=== PATIENT | female | born 1955 | race Caucasian/White ===

== ENCOUNTER → 2023-01-23 | Outpatient (CLI) | payer MEDICARE, SELFPAY ==
[2023-01-23 21:36] LABS: Absolute Lymphocyte Count 2.71 X10^3/uL (0.83-4.51); Absolute Neutrophil Count 3.2 X10^3/uL (2.0-7.7); Basophil# 0.05 X10^3/uL; Basophil% 0.7 % (0-1); Eosinophil# 0.23 X10^3/uL; Eosinophils% 3.4 % (0-5); Hemoglobin 15.1 g/dL (12.0-15.0); Lymphocyte # 2.71 X10^3/ul (0.83-4.51); Lymphocyte % 39.9 % (19-41); Mean Corp Hgb Conc 32.1 g/dL (32-36); Mean Corpuscular Hgb 29.1 pg (27.0-32.0); Mean Corpuscular Volume 90.6 fL (81-99); Mean Platelet Vol. 11.5 fl (6.2-12.0); Monocyte# 0.63 X10^3/uL; Monocyte% 9.3 % (0-10); NRBC Flagged by Analyzer 0 % (0-5); Neutrophil # 3.17 X10^3/uL (2.7-7.7); Neutrophil % 46.6 % (47-70); Platelet Count 242 K/mm3 (150-450); RBC Distribution Width CV 13.2 % (11.6-14.6); RBC Distribution Width SD 43.4 fl (35.1-43.9); Red Blood Count 5.19 M/mm3 (4.2-5.4); White Blood Count 6.8 K/mm3 (4.4-11.0)
[2023-01-23 21:48] LABS: ALB/GLOB Ratio 0.8 RATIO (0.9-2.4); AST(SGOT) 38 U/L (15-37); Alanine Aminotransfer ALT/SGPT 33 U/L (13-56); Albumin, Serum 3.7 g/dL (3.2-5.0); Alkaline Phosphatase 96 U/L (45-117); Anion Gap 5 (5-15); BUN 10 mg/dL (7-18); BUN/Creat Ratio 14.1 RATIO (10-20); Calcium,Total 9.7 mg/dL (8.5-10.1); Chloride 105 mmol/L (98-107); Cholesterol 262 mg/dL (200); Creatinine, Serum 0.71 mg/dL (0.55-1.02); EST Glomerular Filtration Rate 87 mL/min (>60); Est Glom Filt Rate - Afr Amer 105 mL/min (>60); Globulin 4.8 g/dL (2.2-4.2); Glucose 108 mg/dL (74-106); High Density Lipoprotein 55 mg/dL; Potassium 4.5 mmol/L (3.5-5.1); Protein, Total 8.5 g/dL (6.4-8.2); Sodium Level 139 mmol/L (136-145); Triglycerides 166 mg/dL; Very Low Density Lipoprotein 33 mg/dL (5-40)
== END | disposition home or self-care (01) ==
PROVIDERS: Visit Provider Nurse Practitioner
DX: Z00.00 Encounter for general adult medical examination without abnormal findings (principal); J04.0 Acute laryngitis; E78.5 Hyperlipidemia, unspecified
CPT/HCPCS: 80053; 80061; 84443; 85025

== ENCOUNTER → 2023-10-02 | Outpatient (CLI) | payer MEDICARE, SELFPAY ==
--- NOTE | 2023-10-02 10:28 | RAD_ITS ---
STUDY: X-RAY - LEFT KNEE REASON FOR EXAM: Female, 68 years old. Left knee pain. TECHNIQUE: 2 view(s) of the knee. COMPARISON: None. FINDINGS: Osteopenia. Small superior patellar spur. Moderate medial compartmental arthrosis with osteophytes. Mild arthrosis of the lateral compartment. Mild arthrosis of the patellofemoral compartment. Small suprapatellar joint effusion. RAD/Knee 1 or 2 Views IMPRESSION: Osteopenia, tricompartmental arthrosis most marked medially and small joint effusion. Electronically Signed: Maurizio Shah MD at 10:03 EDT ,
== END | disposition home or self-care (01) ==
LOC: RAD 10:20
PROVIDERS: PCP Nurse Practitioner; Referring Provider Nurse Practitioner; Visit Provider Nurse Practitioner
DX: M25.562 Pain in left knee (principal)
CPT/HCPCS: 73560

== ENCOUNTER → 2024-08-27 | Outpatient (CLI) | payer MEDICARE, SELFPAY ==
[2024-08-27 21:38] LABS: Absolute Lymphocyte Count 2.17 X10^3/uL (0.83-4.51); Absolute Neutrophil Count 3.4 X10^3/uL (2.0-7.7); Basophil# 0.05 X10^3/uL; Basophil% 0.8 % (0-1); Eosinophil# 0.25 X10^3/uL; Eosinophils% 3.8 % (0-5); Hematocrit 42.7 % (37-47); Hemoglobin 14.1 g/dL (12.0-15.0); Lymphocyte # 2.17 X10^3/ul (0.83-4.51); Lymphocyte % 33.1 % (19-41); Mean Corpuscular Hgb 29.5 pg (27.0-32.0); Mean Corpuscular Volume 89.3 fL (81-99); Monocyte# 0.69 X10^3/uL; Monocyte% 10.5 % (0-10); NRBC Flagged by Analyzer 0 % (0-5); Neutrophil # 3.39 X10^3/uL (2.7-7.7); Neutrophil % 51.6 % (47-70); Platelet Count 217 K/mm3 (150-450); RBC Distribution Width CV 13.1 % (11.6-14.6); RBC Distribution Width SD 43.2 fl (35.1-43.9); Red Blood Count 4.78 M/mm3 (4.2-5.4); White Blood Count 6.6 K/mm3 (4.4-11.0)
[2024-08-27 23:17] LABS: Cholesterol 277 mg/dL (<=200); High Density Lipoprotein 65 mg/dL; Low Density Lipoprotein Calc. 176 mg/dL; Triglycerides 182 mg/dL; Very Low Density Lipoprotein 36 mg/dL (5-40); cholesterol:hdl ratio screen 4.25
[2024-08-27 23:43] LABS: ALB/GLOB Ratio 1.2 RATIO (0.9-2.4); AST(SGOT) 44 U/L (<=31); Alanine Aminotransfer ALT/SGPT 30 U/L (<=34); Alkaline Phosphatase 99 U/L (35-104); Anion Gap 10 (5-15); BUN 7 mg/dL (4-19); BUN/Creat Ratio 11.3 RATIO (10-20); Calcium,Total 9.3 mg/dL (7.6-11.0); Carbon Dioxide 26.2 mmol/L (21.0-32.0); Chloride 103 mmol/L (98-108); Creatinine, Serum 0.63 mg/dL (0.70-1.20); EST Glomerular Filtration Rate 95 (>60); Globulin 3.4 g/dL (2.2-4.2); Glucose 140 mg/dL (70-99); Potassium 4.2 mmol/L (3.3-5.1); Protein, Total 7.4 g/dL (5.9-8.4); Sodium Level 139 mmol/L (133-145); Total Bilirubin 0.88 mg/dL (0.00-1.30)
== END | disposition home or self-care (01) ==
PROVIDERS: PCP Nurse Practitioner; Referring Provider Nurse Practitioner; Visit Provider Nurse Practitioner
DX: Z00.00 Encounter for general adult medical examination without abnormal findings (principal); R10.32 Left lower quadrant pain; E78.00 Pure hypercholesterolemia, unspecified; I83.812 Varicose veins of left lower extremity with pain
CPT/HCPCS: 80053; 80061; 85025

== ENCOUNTER → 2024-10-01 | Outpatient (CLI) | payer MEDICARE, SELFPAY ==
--- NOTE | 2024-10-01 07:01 | MRI_ITS ---
PROCEDURE: BRAIN W/WO CONTRAST 10/01/2024 REASON FOR EXAM: HEARING LOSS TECHNIQUE: Brain MRI without and with intravenous contrast with additional dedicated imaging of the IACs. Multiplanar and multisequence images were obtained. CONTRAST: Clariscan 20 mL FINDINGS: Brain: 2 cm curvilinear hyperintensity of the posterior left parietal lobe. Diffusion weighted images: 2 cm curvilinear hyperintensity of the cortex in the posterior left parietal lobe demonstrates restricted diffusion consistent with an acute/subacute infarct. Ventricles: No ventricular dilatation. 4 cm mass of CSF intensity involving the anterior aspect of the left temporal fossa consistent with arachnoid cyst. Major Intracranial Vessels: Normal flow voids. Sinuses: Clear. Mastoids: Small amount of fluid signal is identified within the left mastoid air cells. IACs: No cerebellopontine angle mass to suggest a vestibular schwannoma (acoustic neuroma). Cranial Nerves VII and VIII: Normal. No evidence of mass. No abnormal contrast enhancement. Cochlea, Vestibule and Semicircular Canals: Normal Middle Ear Cavities: Normal MRI/Brain W/WO Contrast IMPRESSION: No vestibular schwannoma (acoustic neuroma). 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 4 cm left temporal arachnoid cyst Reading Location: [id number]
== END | disposition home or self-care (01) ==
PROVIDERS: PCP Nurse Practitioner; Referring Provider Otolaryngology Otolaryngology/Facial Plastic Surgery; Visit Provider Otolaryngology Otolaryngology/Facial Plastic Surgery
DX: H90.3 Sensorineural hearing loss, bilateral (principal)
CPT/HCPCS: 70553; A9575

== ENCOUNTER → 2024-11-20 | Outpatient (CLI) | payer MEDICARE, SELFPAY ==
--- OUTSIDE RECORDS SUMMARY | 2024-11-20 21:46 | XMS RPT_ITS | CCD ---
Author Organization [facility] Care Team Providers Care Scheduling Assistant Name Role Phone Fabián EXPORT FREIGHT CLERK-C, Bolivar Primary Care Provider [phone] Fabián EXPORT FREIGHT CLERK-C, Bolivar Attending Provider [phone] Fabián EXPORT FREIGHT CLERK-C, Bolivar Referring Provider [phone] Johnson SDE.REVIEW MANAGER, Bolivar L Primary Care Provide r Rupert ACEVEDO, Dr. Malik Painter Attending Provider [phone] Dr. Malik Emery MD Referring Provider [phone] Johnson EXPORT FREIGHT CLERK, Bolivar Attending Unavailable Johnson EXPORT FREIGHT CLERK, Bolivar Referring Unavailable Johnson EXPORT FREIGHT CLERK, Bolivar Primary Care Unavailable Malik Emery Attending Unavailable Malik Emery Referring Unavailable Johnson EXPORT FREIGHT CLERK, Bolivar Primary Care Unavailable Ryder Moran Attending Unavailable Johnson EXPORT FREIGHT CLERK, Bolivar Primary Care Unavailable Johnson EXPORT FREIGHT CLERK, Bolivar Primary Care Unavailable Johnson EXPORT FREIGHT CLERK, Bolivar Referring Unavailable Robbie Herr Attending Unavailable JOHNSON, BOLIVAR L Primary Care Unavailable JOHNSON, BOLIVAR L Referring Unavailable JOHNSON, BOLIVAR L Primary Care Unavailable JOHNSON, BOLIVAR L Primary Care Unavailable JOHNSON, BOLIVAR L Referring Unavailable JOHNSON, BOLIVAR L Primary Care Unavailable Allergies Allergy Classification Reported Allergen(s) Allergy Type Date of Onset Reaction(s) Facility (7 sources) Amoxicillin; Translations: [AMOXICILLIN] Drug Allergy 5 Shortness of Breath [facility] (4 sources) Sulfamethoxazole Drug Allergy 2 Anaphylaxis [facility] (1 source) Amoxicillin Drug Allergy 4 [facility] (1 source) Sulfamethoxazole Drug Allergy 4 [facility] Medications Current Medications Medication Drug Class(es) Dates Sig (Normalized) Sig (Original) atorvastatin 20 mg oral tablet (2 sources) HMG-CoA Reductase Inhibitor Start: 08-28-2024 take 1 tablet by mouth once daily Atorvastatin 20 mg tablet Active 20 mg PO daily August 28, 2024 12:00am biotin 1 mg oral capsule (2 sources) Start: 10-31-2023 take 1 capsule by mouth once daily Biotin 1 mg capsule Active 1 mg PO DAILY October 31, 2023 12:00am fluticasone propionate 0.05 mg/actuat metered dose nasal spray (6 sources) Corticosteroid Start: 12-21-2021 take 50 ug nasal route once daily Fluticasone Propionate (Flonase Allergy Relief) 50 mcg/actuation spray,suspension Active 2 NMA INTRANASAL DAILY December 21, 2021 12:00am administer into each nostril Start: 12-21-2021 take 1 spray(s) nasa l route once daily Fluticasone Propionate (Flonase Allergy Relief) 50 mcg/actuation spray,suspension Active 2 SPRAY INTRANASAL DAILY December 21, 2021 12:00am administer into each nostril Start: 05-17-2021 take 2 spray(s) nasa l route once daily fluticasone (FLONASE) 50 mcg/actuation nasal spray Use 2 Sprays in each nostril once daily. 15.8 mL 5 05/17/2021 Active Completed/Discontinued Medications Medication Drug Class(es) Dates Sig (Normalized) Sig (Original) cefuroxime 500 mg oral tablet (2 sources) Cephalosporin Antibacterial Start: 08-18-2024 End: 08-27-2024 take 1 tablet by mouth every twelve hours Cefuroxime Axetil 500 mg tablet Discontinued 500 mg PO Q12H August 18, 2024 12:00am August 27, 2024 3:06pm cephalexin 500 mg oral capsule (20 sources) Cephalosporin Antibacterial Start: 09-14-2021 End: 09-24-2021 take 1 capsule by mouth twice daily Cephalexin 500 mg capsule Discontinued 500 mg PO TWICE A DAY 30 03September 14, 2021 12:00am September 23, 2021 12:00am September 24, 2021 12:05am Start: 09-17-2020 End: 09-27-2020 take 1 capsule by mouth twice daily Cephalexin 500 mg capsule Discontinued 500 mg PO TWICE A DAY September 17, 2020 12:00am September 17, 2020 6:21pm Start: 07-08-2020 End: 07-22-2020 take 1 capsule by mouth twice daily Cephalexin 500 mg capsule Discontinued 500 mg PO TWICE A DAY July 08, 2020 6:55pm July 21, 2020 1:00am July 22, 2020 1:03am Start: 04-18-2018 End: 04-28-2018 take 1 capsule by mouth twice daily Cephalexin 500 mg capsule Discontinued 500 mg PO TWICE A DAY 30 03April 18, 2018 1:00am April 27, 2018 1:00am April 28, 2018 1:14am ciprofloxacin 500 mg oral tablet (8 sources) Quinolone Antimicrobial Start: 12-25-2022 End: 01-23-2023 take 1 tablet by mouth twice daily Ciprofloxacin Hcl (Cipro) 500 mg tablet Discontinued 500 mg PO TWICE A DAY December 25, 2022 12:00am January 23, 2023 3:30pm Start: 08-10-2020 End: 09-17-2020 take 1 tablet by mouth twice daily Ciprofloxacin Hcl (Cipro) 500 mg tablet Discontinued 500 mg PO TWICE A DAY August 10, 2020 1:00am September 17, 2020 6:19pm etodolac 500 mg oral tablet (2 sources) Nonsteroidal Anti-inflammatory Drug Start: 10-31-2023 End: 08-18-2024 take 1 tablet by mouth twice daily Etodolac 500 mg tablet Discontinued 500 mg PO TWICE A DAY October 31, 2023 12:00am August 18, 2024 7:21pm metFORMIN hydrochloride 500 mg oral tablet (4 sources) Biguanide Start: 04-15-2018 End: 04-18-2018 take 1 tablet by mouth once daily Metformin 500 mg tablet Discontinued 500 mg PO DAILY April 15, 2018 1:00am April 18, 2018 7:11pm metroNIDAZOLE 250 mg oral tablet (4 sources) Nitroimidazole Antimicrobial Start: 12-25-2022 End: 01-04-2023 take 1 tablet by mouth three times daily Metronidazole 250 mg tablet Discontinued 250 mg PO THREE TIMES A DAY 09 04December 25, 2022 12:00am January 03, 2023 12:00am January 04, 2023 12:03am sulfamethoxazole 800 mg / trimethoprim 160 mg oral tablet (4 sources) Dihydrofolate Reductase Inhibitor Antibacterial, Sulfonamide Antimicrobial Start: 03-21-2022 End: 03-28-2022 Sulfamethoxazole- Trimethoprim 800-160 mg tablet Discontinued 1 {tbl} PO TWICE A DAY 14 March 21, 2022 12:00am March 27, 2022 12:00am March 28, 2022 12:03am Start: 03-21-2022 End: 03-28-2022 take 1 tablet by mouth twice daily Sulfamethoxazole-Trimethoprim Discontinu ed 1 TABLET PO TWICE A DAY 14 March 21, 2022 12:00am March 28, 2022 12:03am Problems Active Problems Problem Classification Problem Date Documented Date Episodic/Chronic Abdominal pain (4 sources) Left lower quadrant pain; Translations: [Left lower quadrant pain] 12-25-2022 Episodic Disorders of lipid metabolism (2 sources) Hypercholesterolemia; Translations: [Pure hypercholesterolemia, unspecified] 08-27-2024 Chronic Diverticulosis and diverticulitis (4 sources) Diverticulitis; Translations: [Diverticulitis of intestine, part unspecified, without perforation or abscess without bleeding] 12-25-2022 Chronic Hemorrhoids (4 sources) Hemorrhoids; Translations: [Unspecified hemorrhoids] Onset: 07-07-2014 Resolved: 07-29-2014 07-07-2014 Episodic Menstrual disorders (2 sources) Intermenstrual bleeding - irregular; Translations: [Excessive and frequent menstruation with irregular cycle] 07-07-2014 Chronic Nonmalignant breast conditions (2 sources) Calcification of breast; Translations: [Mammographic calcification found on diagnostic imaging of breast] Onset: 10-22-2024 09-12-2024 Episodic Osteoarthritis (5 sources) Osteoarthritis of joint of right hand; Translations: [Primary osteoarthritis, right hand] Onset: 10-31-2023 07-08-2020 Chronic Other ear and sense organ disorders (2 sources) Hearing loss of left ear; Translations: [Unspecified hearing loss, left ear] 08-19-2024 Chronic Other ear and sense organ disorders (1 source) Sensorineural hearing loss, bilateral; Translations: [Sensorineural hearing loss, bilateral] Onset: 10-06-2024 Chronic Other ear and sense organ disorders (2 sources) Tinnitus; Translations: [Tinnitus, unspecified ear] 08-19-2024 Episodic Other injuries and conditions due to external causes (4 sources) Mucoid impaction of bronchi; Translations: [Unspecified foreign body in bronchus causing asphyxiation, initial encounter] 09-17-2020 Episodic Other lower respiratory disease (4 sources) Cough; Translations: [Cough] 04-18-2018 Episodic Other non-traumatic joint disorders (4 sources) Swelling of finger joint; Translations: [Effusion, unspecified hand] 03-22-2022 Episodic Other screening for suspected conditions (not mental disorders or infectious disease) (7 sources) Patient encounter status; Translations: [Encounter for screening mammogram for malignant neoplasm of breast] Onset: 09-11-2024 01-13-2021 Episodic Other upper respiratory disease (4 sources) Nasal discharge; Translations: [Other specified disorders of nose and nasal sinuses] 08-10-2020 Episodic Other upper respiratory infections (4 sources) Maxillary sinusitis; Translations: [Chronic maxillary sinusitis] 09-17-2020 Chronic Other upper respiratory infections (4 sources) Laryngitis; Translations: [Acute laryngitis] 04-18-2018 Episodic Skin and subcutaneous tissue infections (4 sources) Paronychia of finger; Translations: [Cellulitis of right finger] 03-21-2022 Episodic Unclassified (1 source) i might hasve swallowed a straight pin Onset: 2024 Varicose veins of lower extremity (3 sources) Varicose veins of lower extremity; Translations: [Asymptomatic varicose veins of unspecified lower extremity] 10-02-2023 Episodic Past or Other Problems Problem Classification Problem Date Documented Da te Episodic/Chronic Gastrointestinal hemorrhage (6 sources) Gastrointestinal hemorrhage; Translations: [Hemorrhage of anus and rectum] Onset: 5 03-14-2015 Episodic Other non-traumatic joint disorders (4 sources) Pain in left knee; Translations: [Left knee pain] Onset: 4 10-02-2023 Episodic Other non-traumatic joint disorders (1 source) Pain in right knee; Translations: [Pain in right knee] Onset: 4 Episodic Results Test Name Value Interpretation Reference Range Facility DBT Breast - left diagnostic for implanton 10-22-2024 IMPRESSION: Calcifications in the central region of the left breast, middle depth are probably benign. A follow-up in 6 months is recommended. BI-RADS Category 3: Probably Benign RISK: Based on the Tyrer-Cuzick (TC) risk assessment model, this patient has a 2.6% lifetime risk of developing breast cancer, meaning they are at average risk for developing breast cancer. However, this is only an estimate based on available history provided on the patient's questionnaire. We encourage all patients to talk with their providers about these results, further recommendations for managing breast health, and appropriate supplemental screening options if the patient has dense breast tissue. Interpreting Radiologist: Srinivasan Major M.D. Electronically signed on: 10/22/2024 Farm Implement Mechanic: CHAN Transcribe Date/Time: Oct 22 2024 2:29P Dictated by : SRINIVASAN MAJOR MD This examination was interpreted and the report reviewed and electronically signed by: SRINIVASAN MAJOR MD on Oct 22 2024 3:12PM EST [facility] * * *Final Report* * * DATE OF EXAM: Oct 22 2024 2:54PM [facility] 0628 - SANDRA QUEG W YAS LT / PROCEDURE REASON: R92.8 Abnormal mammogram R92.1 Calcification left breast * * * * Physician Interpretation * * * * [place] [address] #[id number] - SANDRA [employer] LT HISTORY: 69 year-old patient seen for diagnostic evaluation of the finding(s) described on prior mammogram in the left breast. Patient states no personal history of breast cancer. COMPARISON STUDIES: The present examination has been compared to prior imaging studies dated 01/19/2021 (mammogram) and 09/11/2024 (mammogram). MAMMOGRAM TECHNIQUE: The study was acquired using full field digital technology and interpreted from soft copy. Digital Breast Tomosynthesis (DBT) images were obtained and used to assist in the interpretation of this examination. MAMMOGRAM FINDINGS: There are scattered areas of fibroglandular density. Additional evaluation was performed for the calcifications in the left breast, central region seen on 09/11/2024. On the present examination, there are loosely grouped punctate calcifications in the central region of the left breast, middle depth. [facility] Provider, [facility] - 10/22/2024 * * *Final Report* * * DATE OF EXAM: Oct 22 2024 2:54PM [facility] 0628 - SANDRA SORENSON LT / PROCEDURE REASON: R92.8 Abnormal mammogram R92.1 Calcification left breast * * * * Physician Interpretation * * * * [place] [address] #[id number] - SANDRA SORENSON LT HISTORY: 69 year-old patient seen for diagnostic evaluation of the finding(s) described on prior mammogram in the left breast. Patient states no personal history of breast cancer. COMPARISON STUDIES: The present examination has been compared to prior imaging studies dated 01/19/2021 (mammogram) and 09/11/2024 (mammogram). MAMMOGRAM TECHNIQUE: The study was acquired using full field digital technology and interpreted from soft copy. Digital Breast Tomosynthesis (DBT) images were obtained and used to assist in the interpretation of this examination. MAMMOGRAM FINDINGS: There are scattered areas of fibroglandular density. Additional evaluation was performed for the calcifications in the left breast, central region seen on 09/11/2024. On the present examination, there are loosely grouped punctate calcifications in the central region of the left breast, middle depth. IMPRESSION IMPRESSION: Calcifications in the central region of the left breast, middle depth are probably benign. A follow-up in 6 months is recommended. BI-RADS Category 3: Probably Benign RISK: Based on the Tyrer-Cuzick (TC) risk assessment model, this patient has a 2.6% lifetime risk of developing breast cancer, meaning they are at average risk for developing breast cancer. However, this is only an estimate based on available history provided on the patient's questionnaire. We encourage all patients to talk with their providers about these results, further recommendations for managing breast health, and appropriate supplemental screening options if the patient has dense breast tissue. Interpreting Radiologist: Srinivasan Major M.D. Electronically signed on: 10/22/2024 Farm Implement Mechanic: CHAN Transcribe Date/Time: Oct 22 2024 2:29P Dictated by : SRINIVASAN MAJOR MD This examination was interpreted and the report reviewed and electronically signed by: SRINIVASAN MAJOR MD on Oct 22 2024 3:12PM EST [facility] Radiology Study observation (narrative) Lola davis [facility] DBT Breast - left diagnostic for implantOrdered By: [facility] Provider on 10-22-2024 [facility] SANDRA DIAG W YAS LTon 025 SANDRA DIAG W YAS LT * * *Final Report* * * DATE OF EXAM: Oct 22 2024 2:54PM [facility] 0628 - SANDRA DIAG W YAS LT / PROCEDURE REASON: R92.8 Abnormal mammogram R92.1 Calcification left breast * * * * Physician Interpretation * * * * [place] [address] #[id number] - SANDRA DIAG W YAS LT HISTORY: 69 year-old patient seen for diagnostic evaluation of the finding(s) described on prior mammogram in the left breast. Patient states no personal history of breast cancer. COMPARISON STUDIES: The present examination has been compared to prior imaging studies dated 01/19/2021 (mammogram) and 09/11/2024 (mammogram). MAMMOGRAM TECHNIQUE: The study was acquired using full field digital technology and interpreted from soft copy. Digital Breast Tomosynthesis (DBT) images were obtained and used to assist in the interpretation of this examination. MAMMOGRAM FINDINGS: There are scattered areas of fibroglandular density. Additional evaluation was performed for the calcifications in the left breast, central region seen on 09/11/2024. On the present examination, there are loosely grouped punctate calcifications in the central region of the left breast, middle depth. IMPRESSION: Calcifications in the central region of the left breast, middle depth are probably benign. A follow-up in 6 months is recommended. BI-RADS Category 3: Probably Benign RISK: Based on the Tyrer-Cuzick (TC) risk assessment model, this patient has a 2.6% lifetime risk of developing breast cancer, meaning they are at average risk for developing breast cancer. However, this is only an estimate based on available history provided on the patient's questionnaire. We encourage all patients to talk with their providers about these results, further recommendations for managing breast health, and appropriate supplemental screening options if the patient has dense breast tissue. Interpreting Radiologist: Srinivasan Major M.D. Electronically signed on: 10/22/2024 Farm Implement Mechanic: CHAN Transcribe Date/Time: Oct 22 2024 2:29P Dictated by : SRINIVASAN MAJOR MD This examination was interpreted and the report reviewed and electronically signed by: SRINIVASAN MAJOR MD on Oct 22 2024 3:12PM EST [id number] Normal [facility] Brain W/WO Contraston 2024 Brain W/WO Contrast [facility] Imaging Services [address] [place] [address] Brain W/WO Contrast MR#: [id number] Acct: [id number] Name: MARY JANE ADAIR Rep #: [id number] : 1955 F 69 From: Donell Gaspar MD PCP: Bolivar Johnson, EXPORT FREIGHT CLERK-C Status: REG CLI Study: Brain W/WO Contrast Date of Exam: 10/01/24 Exam# [id number] Ordering Dr: Malik Emery MD PROCEDURE: BRAIN W/WO CONTRAST 10/01/2024 REASON FOR EXAM: HEARING LOSS TECHNIQUE: Brain MRI without and with intravenous contrast with additional dedicated imaging of the IACs. Multiplanar and multisequence images were obtained. CONTRAST: Clariscan 20 mL FINDINGS: Brain: 2 cm curvilinear hyperintensity of the posterior left parietal lobe. Diffusion weighted images: 2 cm curvilinear hyperintensity of the cortex in the posterior left parietal lobe demonstrates restricted diffusion consistent with an acute/subacute infarct. Ventricles: No ventricular dilatation. 4 cm mass of CSF intensity involving the anterior aspect of the left temporal fossa consistent with arachnoid cyst. Major Intracranial Vessels: Normal flow voids. Sinuses: Clear. Mastoids: Small amount of fluid signal is identified within the left mastoid air cells. IACs: No cerebellopontine angle mass to suggest a vestibular schwannoma (acoustic neuroma). Cranial Nerves VII and VIII: Normal. No evidence of mass. No abnormal contrast enhancement. Cochlea, Vestibule and Semicircular Canals: Normal Middle Ear Cavities: Normal MRI/Brain W/WO Contrast IMPRESSION: No vestibular schwannoma (acoustic neuroma). 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 4 cm left temporal arachnoid cyst Reading Location: [facility] CC: EXPORT FREIGHT CLERKLayton Johnson; Dr. Malik Emery MD Farm Implement Mechanic: Signed Normal [facility] Magnetic resonance imaging r eportOrdered By: Donell Gaspar on 10-01-[address] [facility] Imaging Services [address] [place] [address] Brain W/WO Contrast MR#: [id number] Acct: [id number] Name: MARY JANE ADAIR Rep #: [id number] : 1955 F 69 From: Иван Gaspar MD PCP: TORRI Howard Status: REG CLI Study:Brain W/WO Contrast Date of Exam: 10/01/24 Exam# [id number] Ordering Dr: Yoselyn Emery MD PROCEDURE: BRAIN W/WO CONTRAST 10/01/2024 REASON FOR EXAM: HEARING LOSS TECHNIQUE: Brain MRI without and with intravenous contrast with additional dedicated imaging of the IACs. Multiplanar and multisequence images were obtained. CONTRAST: Clariscan 20 mL FINDINGS: Brain: 2 cm curvilinear hyperintensity of the posterior left parietal lobe. Diffusion weighted images: 2 cm curvilinear hyperintensity of the cortex in the posterior left parietal lobe demonstrates restricted diffusion consistent with an acute/subacute infarct. Ventricles: No ventricular dilatation. 4 cm mass of CSF intensity involving theanterior aspect of the left temporal fossa consistent with arachnoid cyst. Major Intracranial Vessels: Normal flow voids. Sinuses: Clear. Mastoids: Small amount of fluid signal is identified within the left mastoid aircells. IACs: No cerebellopontine angle mass to suggest a vestibular schwannoma (acoustic neuroma). Cranial Nerves VII and VIII: Normal. No evidence of mass. No abnormal contrast enhancement. Cochlea, Vestibule and Semicircular Canals: Normal Middle Ear Cavities: Normal MRI/Brain W/WO Contrast IMPRESSION: No vestibular schwannoma (acoustic neuroma). 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 4 cm left temporal arachnoid cyst Reading Location: [facility] CC: TORRI Johnson; Dr. Malik Emery MD ~ Farm Implement Mechanic: Signed [facility] SCREENING W TOMOon 09-11 SANDRA SCREENING W YAS * * *Final Report* * * DATE OF EXAM: Sep 11 2024 8:57AM [facility] 0582 - SANDRA SCREENING W YAS / PROCEDURE REASON: Z12. 31: Encounter for screening mammogram for malignant neoplasm of breast. * * * * Physician Interpretation * * * * [place] [address] #[id number] - SANDRA SCREENING W YAS HISTORY: 69 year-old patient seen for screening. No current complaints. Patient states no personal history of breast cancer. COMPARISON STUDIES: The present examination has been compared to a prior imaging study dated 01/19/2021 (mammogram). MAMMOGRAM TECHNIQUE: The study was acquired using full field digital technology and interpreted from soft copy. Digital Breast Tomosynthesis (DBT) images were obtained and used to assist in the interpretation of this examination. MAMMOGRAM FINDINGS: There are scattered areas of fibroglandular density. There are calcifications in the central region of the left breast, middle depth. No suspicious masses, calcifications or other abnormalities are seen in the right breast. IMPRESSION: Calcifications in the central region of the left breast, middle depth require additional evaluation. Diagnostic mammogram is recommended. BI-RADS Category 0: Incomplete: Needs Additional Imaging Evaluation RISK: Based on the Tyrer-Cuzick (TC) risk assessment model, this patient has a 3.1% lifetime risk of developing breast cancer, meaning they are at average risk for developing breast cancer. However, this is only an estimate based on available history provided on the patient's questionnaire. We encourage all patients to talk with their providers about these results, further recommendations for managing breast health, and appropriate supplemental screening options if the patient has dense breast tissue. Interpreting Radiologist: Betty Wakefield M.D. Electronically signed on: 09/12/2024 Farm Implement Mechanic: CHAN Transcribe Date/Time: Sep 11 2024 8:26A Dictated by : BETTY AWKEFIELD MD This examination was interpreted and the report reviewed and electronically signed by: BETTY WAKEFIELD MD on Sep 12 2024 10:57AM EST [id number] N Normal [facility] Absolute neutrophil countOrd ered By: Bolivar Johnson on 08-27-2024 Neutrophils (Bld) [#/Vol] 3.4 10*3/uL 2.0-7.7 [facility] Anion gap in Serum or Plasma Ordered By: Bolivar Johnson on 08-27-2024 Anion gap [Moles/Vol] 10 mmol/L - [facility] BUN/creatinine ratioOrdered By: Bolivar Johnson on 08-27-2024 Urea nitrogen/Creatinine [Mass ratio] 11.3 mg/mg 03-30 [facility] Basophil percentageOrdered B y: Bolivar Johnson on 08-27-2024 Basophils/100 WBC (Bld) 0.8 % 0-1 [facility] Bilirubin, totalOrdered By: Bolivar Johnson on 08-27-2024 Bilirubin [Mass/Vol] 0.88 mg/dL 0.00-1.30 [facility] CBC W/Diff, Automatedon 08-09 Absolute Lymph 2.17 X10 3/uL Normal 0.83-4.51 [facility] Comment on above: Performed By: #### L 500.4100, L500.4050, L100.0100 #### [facility] [address] [place], [address] Absolute Neut 3.4 X10 3/uL Normal 2.0-7.7 [facility] Comment on above: Performed By: #### L 500.4100, L500.4050, L100.0100 #### [facility] [address] [place], [address] Basophils/100 WBC (Bld) 0.8 % Normal 0-1 [facility] Comment on above: Performed By: #### L 500.4100, L500.4050, L100.0100 #### [facility] [address] [place], [address] Eosinophils/100 WBC (Bld) 3.8 % Normal 0-5 [facility] Comment on above: Performed By: #### L 500.4100, L500.4050, L100.0100 #### [facility] [address] [place], [address] Erythrocyte distribution width (RBC) [Ratio] 13.1 % Normal 11.6-14.6 [facility] Comment on above: Performed By: #### L 500.4100, L500.4050, L100.0100 #### [facility] [address] [place], [address] Hematocrit (Bld) [Volume fraction] 42.7 % Normal 37-47 [facility] Comment on above: Performed By: #### L 500.4100, L500.4050, L100.0100 #### [facility] [address] [place], [address] Hemoglobin (Bld) [Mass/Vol] 14.1 g/dL Normal 12.0-15.0 [facility] Comment on above: Performed By: #### L 500.4100, L500.4050, L100.0100 #### [facility] [address] [place], [address] IG% 0.200 Normal 0.0-0.9 [facility] Comment on above: Result Comment: IG% - Immature Granulocytes (promyelocytes, myelocytes and metamyelocytes) > 1% indicates that a LEFT SHIFT is Present. Performed By: #### L 500.4100, L500.4050, L100.0100 #### [facility] [address] [place], [address] Lymphocytes/100 WBC (Bld) 33.1 % Normal 19-41 [facility] Comment on above: Performed By: #### L 500.4100, L500.4050, L100.0100 #### [facility] [address] [place], [address] MCH (RBC) [Entitic mass] 29.5 pg Normal 27.0-32.0 [facility] Comment on above: Performed By: #### L 500.4100, L500.4050, L100.0100 #### [facility] [address] [place], [address] MCHC (RBC) [Mass/Vol] 33.0 g/dL Normal 32-36 [facility] Comment on above: Performed By: #### L 500.4100, L500.4050, L100.0100 #### [facility] [address] [place], [address] MCV (RBC) [Entitic vol] 89.3 fL Normal 81-99 [facility] Comment on above: Performed By: #### L 500.4100, L500.4050, L100.0100 #### [facility] [address] [place], [address] Monocytes/100 WBC (Bld) 10.5 % High 0-10 [facility] Comment on above: Performed By: #### L 500.4100, L500.4050, L100.0100 #### [facility] [address] [place], [address] Neutrophils/100 WBC (Bld) 51.6 % Normal 47-70 [facility] Comment on above: Performed By: #### L 500.4100, L500.4050, L100.0100 #### [facility] [address] [place], [address] Nucleated RBC (Bld) [#/Vol] 0 10*3/uL Normal 0-5 [facility] Comment on above: Performed By: #### L 500.4100, L500.4050, L100.0100 #### [facility] [address] [place], [address] Platelet mean volume (Bld) [Entitic vol] 11.0 fL Normal 6.2-12.0 [facility] Comment on above: Performed By: #### L 500.4100, L500.4050, L100.0100 #### [facility] [address] [place], [address] Platelets (Bld) [#/Vol] 217 10*3/uL Normal 150-450 [facility] Comment on above: Performed By: #### L 500.4100, L500.4050, L100.0100 #### [facility] [address] [place], [address] RBC (Bld) [#/Vol] 4.78 10*6/uL Normal 4.2-5.4 [facility] Comment on above: Performed By: #### L 500.4100, L500.4050, L100.0100 #### [facility] [address] [place], [address] RDW SD 43.2 fl Normal 35.1-43.9 [facility] Comment on above: Performed By: #### L 500.4100, L500.4050, L100.0100 #### [facility] [address] [place], [address] WBC (Bld) [#/Vol] 6.6 10*3/uL Normal 4.4-11.0 [facility] Comment on above: Performed By: #### L 500.4100, L500.4050, L100.0100 #### [facility] [address] [place], [address] Calculated very low density lipoprotein (VLDL) cholesterol measurementOrdered By: Bolivar Johnson on 08-27-2024 VLDL Cholesterol 36 mg/dL 5-40 [facility] Carbon dioxide, total [Moles /volume] in Central venous bloodOrdered By: Bolivar Johnson on 08-27-2024 CO2 [Moles/Vol] 26.2 mmol/L 21.0-32.0 [facility] Chloride assayOrdered By: Do ra Johnson on 08-27-2024 Chloride [Moles/Vol] 103 mmol/L 98-108 [facility] Comprehensive Metabolic Prof ilon 08-27-2024 Albumin [Mass/Vol] 4.0 g/dL Normal 3.4-4.8 [facility] Comment on above: Performed By: #### L 500.4100, L500.4050, L100.0100 #### [facility] [address] [place], [address] Albumin/Globulin [Mass ratio] 1.2 {ratio} Normal 0.9-2.4 [facility] Comment on above: Performed By: #### L 500.4100, L500.4050, L100.0100 #### [facility] [address] [place], [address] ALK PHOS 99 U/L Normal 35-104 [facility] Comment on above: Performed By: #### L 500.4100, L500.4050, L100.0100 #### [facility] [address] [place], [address] ALT [Catalytic activity/Vol] 30 U/L Normal <=34 [facility] Comment on above: Performed By: #### L 500.4100, L500.4050, L100.0100 #### [facility] [address] [place], [address] AST [Catalytic activity/Vol] 44 U/L High <=31 [facility] Comment on above: Performed By: #### L 500.4100, L500.4050, L100.0100 #### [facility] [address] [place], [address] Bilirubin [Mass/Vol] 0.88 mg/dL Normal 0.00-1.30 [facility] Comment on above: Performed By: #### L 500.4100, L500.4050, L100.0100 #### [facility] [address] [place], [address] BUN/CRE 11.3 RATIO Normal 10-20 [facility] Comment on above: Performed By: #### L 500.4100, L500.4050, L100.0100 #### [facility] [address] [place], [address] Calcium [Mass/Vol] 9.3 mg/dL Normal 7.6-11.0 [facility] Comment on above: Performed By: #### L 500.4100, L500.4050, L100.0100 #### [facility] [address] [place], [address] Chloride [Moles/Vol] 103 mmol/L Normal 98-108 [facility] Comment on above: Performed By: #### L 500.4100, L500.4050, L100.0100 #### [facility] [address] [place], [address] CO2 [Moles/Vol] 26.2 mmol/L Normal 21.0-32.0 [facility] Comment on above: Performed By: #### L 500.4100, L500.4050, L100.0100 #### [facility] [address] [place], [address] Creatinine [Mass/Vol] 0.63 mg/dL Low 0.70-1.20 [facility] Comment on above: Performed By: #### L 500.4100, L500.4050, L100.0100 #### [facility] [address] [place], [address] GAP 10 Normal 5-15 [facility] Comment on above: Performed By: #### L 500.4100, L500.4050, L100.0100 #### [facility] [address] [place], [address] GFR/1.73 sq M.predicted among non-blacks MDRD (S/P/Bld) [Vol rate/Area] 95 mL/min/{1.73_m2} Normal >60 [facility] Comment on above: Result Comment: mL/m in/1.73m2 CKD-EPI Creatinine Equation (2020) Performed By: #### L 500.4100, L500.4050, L100.0100 #### [facility] [address] [place], [address] Globulin (S) [Mass/Vol] 3.4 g/dL Normal 2.2-4.2 [facility] Comment on above: Performed By: #### L 500.4100, L500.4050, L100.0100 #### [facility] [address] [place], [address] Glucose [Mass/Vol] 140 mg/dL High 70-99 [facility] Comment on above: Performed By: #### L 500.4100, L500.4050, L100.0100 #### [facility] [address] [place], [address] Potassium [Moles/Vol] 4.2 mmol/L Normal 3.3-5.1 [facility] Comment on above: Performed By: #### L 500.4100, L500.4050, L100.0100 #### [facility] [address] [place], [address] Sodium [Moles/Vol] 139 mmol/L Normal 133-145 [facility] Comment on above: Performed By: #### L 500.4100, L500.4050, L100.0100 #### [facility] [address] [place], [address] T PROT 7.4 g/dL Normal 5.9-8.4 [facility] Comment on above: Performed By: #### L 500.4100, L500.4050, L100.0100 #### [facility] [address] [place], [address] Urea nitrogen [Mass/Vol] 7 mg/dL Normal 4-19 [facility] Comment on above: Performed By: #### L 500.4100, L500.4050, L100.0100 #### [facility] [address] [place], [address] Eosinophil percentageOrdered By: Bolivar Johnson on 08-27-2024 Eosinophils/100 WBC (Bld) 3.8 % 0-5 [facility] Erythrocyte distribution wid th ratioOrdered By: Bolivar Johnson on 08-27-2024 Erythrocyte distribution width (RBC) [Ratio] 13.1 % 11.6-14.6 [facility] Erythrocyte distribution wid th standard deviationOrdered By: Bolivar Johnson on 08-27-2024 Erythrocyte distribution width (RBC) [Entitic vol] 43.2 fL 35.1-43.9 [facility] GFR/1.73 sq M.predicted hallie g non-blacks MDRD (S/P/Bld) [Vol rate/Area]Ordered By: Bolivar Johnson on 08-27-2024 Estimated GFR (MDRD) Non-Af Amer 95 >60 [facility] Comment on above: mL/min/1.73m2 CKD-EP I Creatinine Equation (2020) Hematocrit Auto (Bld) [Volum e fraction]Ordered By: Bolivar Johnson on 08-27-2024 Hematocrit (Bld) [Volume fraction] 42.7 % 37-47 [facility] Hemoglobin measurementOrdere d By: Bolivar Johnson on 08-27-2024 Hemoglobin (Bld) [Mass/Vol] 14.1 g/dL 12.0-15.0 [facility] Immature granulocytes/100 WB C Auto (Bld)Ordered By: Bolivar Johnson on 08-27-2024 Immature granulocytes/100 WBC (Bld) 0.200 % 0.0-0.9 [facility] Comment on above: IG% - Immature Granu locytes (promyelocytes, myelocytes and metamyelocytes) > 1% indicates that a LEFT SHIFT is Present. LDL calc ser/plasOrdered By: Bolivar Johnson on 08-27-2024 LDL Cholesterol, Calculated 176 mg/dL [facility] Comment on above: Eryuqmvgri=712-541 m g/dL & Higher Qvwx=074 mg/dL or greater Laboratory - Chemistry and C hemistry - challengeOrdered By: Bolivar Johnson on 08-27-2024 AST [Catalytic activity/Vol] 44 U/L High <32 [facility] Lipid Profileon 08-27-2024 CHOL:HDL 4.25 Normal [facility] Comment on above: Performed By: #### L 500.4100, L500.4050, L100.0100 #### [facility] [address] [place], [address] Cholesterol [Mass/Vol] 277 mg/dL High <=200 [facility] Comment on above: Result Comment: Chol esterol level, Desirable <200 mg/dL Borderline high cholesterol 200-239 mg/dL High cholesterol >=240 mg/dL Recommendations of the NCEP Adult Treatment Panel for the following risk-cutoff thresholds for the [place] population. Performed By: #### L 500.4100, L500.4050, L100.0100 #### [facility] [address] [place], [address] Cholesterol in HDL [Mass/Vol] 65 mg/dL Normal [facility] Comment on above: Result Comment: Alia onal Cholesterol Education Program (NCEP) guidelines: <40 mg/dL: Low HDL-cholesterol (major risk factor for CHD) >= 60 mg/dL: High HDL-cholesterol (negative risk factor for CHD) HDL-cholesterol is affected by a number of factors, e.g. smoking, exercise, hormones, sex and age. Performed By: #### L 500.4100, L500.4050, L100.0100 #### [facility] [address] [place], [address] Cholesterol in LDL [Mass/Vol] 176 mg/dL Normal [facility] Comment on above: Result Comment: Bord wurtfj=343-742 mg/dL Higher Zjtf=108 mg/dL or greater Performed By: #### L 500.4100, L500.4050, L100.0100 #### [facility] [address] [place], [address] Cholesterol in VLDL [Mass/Vol] 36 mg/dL Normal 5-40 [facility] Comment on above: Performed By: #### L 500.4100, L500.4050, L100.0100 #### [facility] [address] [place], [address] Triglyceride [Mass/Vol] 182 mg/dL Normal [facility] Comment on above: Result Comment: The drugs N-Acetylcysteine and Metamizole may falsely depress this assay. Normal range: <150 mg/dL Borderline High: 150-199 mg/dL High: 200-499 mg/dL Very High: >500 mg/dL Performed By: #### L 500.4100, L500.4050, L100.0100 #### [facility] [address] [place], [address] Lymphocytes Auto (Unsp spec) [#/Vol]Ordered By: Bolivar Johnson on 08-27-2024 Lymphocytes (Bld) [#/Vol] 2.17 10*3/uL 0.83-4.51 [facility] Lymphocytes/100 WBC Auto (Un sp spec)Ordered By: Bolivar Johnson on 08-27-2024 Lymphocytes/100 WBC (Bld) 33.1 % 19-41 [facility] MCV (mean corpuscular volume ) determinationOrdered By: Bolivar Johnson on 08-27-2024 MCV (RBC) [Entitic vol] 89.3 fL 81-99 [facility] Mean corpuscular hemoglobin (MCH) determinationOrdered By: Bolivar Johnson on 08-27-2024 MCH (RBC) [Entitic mass] 29.5 pg 27.0-32.0 [facility] Mean corpuscular hemoglobin concentration (MCHC) determinationOrdered By: Bolivar Johnson on 08-27-2024 MCHC (RBC) [Mass/Vol] 33.0 g/dL 32-36 [facility] Mean platelet volume determi nationOrdered By: Bolivar Johnson on 08-27-2024 Platelet mean volume (Bld) [Entitic vol] 11.0 fL 6.2-12.0 [facility] Monocyte percentageOrdered B y: Bolivar Johnson on 08-27-2024 Monocytes/100 WBC (Bld) 10.5 % High 0-10 [facility] Neutrophil percentageOrdered By: Bolivar Johnson on 08-27-2024 Neutrophils/100 WBC (Bld) 51.6 % 47-70 [facility] Nucleated red blood cell per centageOrdered By: Bolivar Johnson on 08-27-2024 Nucleated RBC/100 WBC (Bld) [Ratio] 0 % 0-5 [facility] Platelet countOrdered By: Do ra Johnson on 08-27-2024 Platelets (Bld) [#/Vol] 217 10*3/uL 150-450 [facility] Potassium (Unsp spec) [Mass/ Vol]Ordered By: Bolivar Johnson on 08-27-2024 Potassium [Moles/Vol] 4.2 mmol/L 3.3-5.1 [facility] RBC Auto (Bld) [#/Vol]Ordere d By: Bolivar Johnson on 08-27-2024 RBC (Bld) [#/Vol] 4.78 10*6/uL 4.2-5.4 [facility] Screening total cholesterol/ high density lipoprotein (HDL) cholesterol ratioOrdered By: Bolivar Johnson on 08-27-2024 Cholesterol.total/Choles terol in HDL [Mass ratio] 4.25 {ratio} [facility] Serum creatinine measurement (mass/volume)Ordered By: Bolivar Johnson on 08-27-2024 Creatinine [Mass/Vol] 0.63 mg/dL Low 0.70-1.20 [facility] Serum globulin measurementOr dered By: Bolivar Johnson on 08-27-2024 Globulin (S) [Mass/Vol] 3.4 g/dL 2.2-4.2 [facility] Serum glucose measurement (m ass/volume)Ordered By: Bolivar Johnson on 08-27-2024 Glucose [Mass/Vol] 140 mg/dL High 70-99 [facility] Serum or plasma alanine sharif otransferase (ALT) measurementOrdered By: Bolivar Johnson on 08-27-2024 ALT [Catalytic activity/Vol] 30 U/L <35 [facility] Serum or plasma albumin chris urement (mass/volume)Ordered By: Bolivar Johnson on 08-27-2024 Albumin [Mass/Vol] 4.0 g/dL 3.4-4.8 [facility] Serum or plasma albumin/glob ulin mass ratioOrdered By: Bolivar Johnson on 08-27-2024 Albumin/Globulin [Mass ratio] 1.2 {ratio} 0.9-2.4 [facility] Serum or plasma alkaline asif sphatase measurementOrdered By: Bolivar Johnson on 08-27-2024 ALP [Catalytic activity/Vol] 99 U/L 35-104 [facility] Serum or plasma calcium chris urement (mass/volume)Ordered By: Bolivar Johnson on 08-27-2024 Calcium [Mass/Vol] 9.3 mg/dL 7.6-11.0 [facility] Serum or plasma cholesterol in HDL measurement (mass/volume)Ordered By: Bolivar Johnson on 08-27-2024 Cholesterol in HDL [Mass/Vol] 65 mg/dL >40 [facility] Comment on above: National Cholesterol Education Program (NCEP) guidelines:<40 mg/dL: Low HDL-cholesterol (major risk factor for CHD)>= 60 mg/dL: High HDL-cholesterol (negative risk factor for CHD)HDL-cholesterol is affected by a number of factors, e.g. smoking, exercise, hormones, sex and age. Serum or plasma cholesterol measurement (mass/volume)Ordered By: Bolivar Johnson on 08-27-2024 Cholesterol [Mass/Vol] 277 mg/dL High <201 [facility] Comment on above: Cholesterol level, D esirable <200 mg/dLBorderline high cholesterol 200-239 mg/dLHigh cholesterol >=240 mg/dLRecommendations of the NCEP Adult Treatment Panel for the following risk-cutoff thresholds for the [place] population. Serum or plasma urea nitroge n measurement (mass/volume)Ordered By: Bolivar Johnson on 08-27-2024 Urea nitrogen [Mass/Vol] 7 mg/dL 4-19 [facility] Sodium levelOrdered By: Bolivar Johnson on 08-27-2024 Sodium [Moles/Vol] 139 mmol/L 133-145 [facility] Total proteinOrdered By: Tino Johnson on 08-27-2024 Protein [Mass/Vol] 7.4 g/dL 5.9-8.4 [facility] Triglycerides measurementOrd ered By: Bolivar Johnson on 08-27-2024 Triglyceride [Mass/Vol] 182 mg/dL <199 [facility] Comment on above: The drugs N-Acetylcy steine and Metamizole may falsely depress this assay. Normal range: <150 mg/dLBorderline High: 150-199 mg/dLHigh: 200-499 mg/dLVery High: >500 mg/dL White blood cell (WBC) count Ordered By: Bolivar Johnson on 08-27-2024 WBC (Bld) [#/Vol] 6.6 10*3/uL 4.4-11.0 [facility] ED NOTEon 2024 ED NOTE HNO ID: [id number] Author: NIKHIL SAMPSON RN Service: ? Author Type: Registered Nurse Type: ED Notes Filed: 2024 17:23 Note Text: Pt given discharge instructions, pt questions answered and pt denies any further questions at time of discharge. Pt ambulates out of dept with a steady gait. Normal [facility] ED NOTE HNO ID: [id number] Author: NIKHIL SAMPSON, TONY Service: ? Author Type: Registered Nurse Type: ED Notes Filed: 2024 15:53 Note Text: Dr rosenbaum at bedside for exam Normal [facility] ED NOTE HNO ID: [id number] Author: NIKHIL SAMPSON, TONY Service: ? Author Type: Registered Nurse Type: ED Notes Filed: 2024 15:52 Note Text: Pt is unsure if she may have swallowed a straight pin. Pt denies pain, but thinks that she has some discomfort in her throat. Pt thinks it may be a thread instead. Pt has ate and drank since the possible ingestion. Normal [facility] ED PROV NOTEon 2024 ED PROV NOTE HNO ID: [id number] Author: HALEY ROSENBAUM MD Service: Emergency Medicine Author Type: Physician Type: ED Provider Notes Filed: 2024 17:17 Note Text: ED Provider Note Patient Name: Mary Jane Adair : 1955 SERVICE DATE: 02/08/24 History Patient presents with: Foreign Body Ingestion Patient is a 68-year-old female presenting for concern for swallowing a straight pin. Patient states that she initially was holding a straight pin in her mouth. She states that she may have swallowed it because she is having some throat irritation. Although she is not sure if it may be on the threat at home as well. She has eaten and drink without any difficulty since the possible ingestion. She is here to make sure that she does not have it in her throat or esophagus. PAST MEDICAL HISTORY No date: Hemorrhoids No date: Irregular intermenstrual bleeding PAST SURGICAL HISTORY No date: ELBOW No date: HYSTERECTOMY HX No date: PAST SURGICAL HISTORY OF Comment: endometerial ablation No date: PAST SURGICAL HISTORY OF Comment: dANDc No date: PAST SURGICAL HISTORY OF Comment: hysteroscopy 2011: PAST SURGICAL HISTORY OF; Bilateral Comment: benjamin carpal tunnel No date: REMOVAL GALLBLADDER No date: THUMB R No date: TONSILLECTOMY HX FAMILY HISTORY Problem Relation Age of Onset None Mother Emphysema Father Heart Paternal Uncle Social History Tobacco Use Smoking status: Former Types: Cigarettes Start date: 07/07/1982 Smokeless tobacco: Never Vaping Use Vaping status: Never Used Substance and Sexual Activity Alcohol use: No Drug use: Never Sexual activity: Not on file ALLERGIES Allergen Reactions Amoxicillin Shortness of Breath Review of Systems Constitutional: Negative for activity change, appetite change, chills, fatigue and fever. HENT: Negative for congestion, ear pain, rhinorrhea and sore throat. Respiratory: Negative for cough and shortness of breath. Cardiovascular: Negative for chest pain and palpitations. Gastrointestinal: Negative for abdominal pain, diarrhea, nausea and vomiting. Genitourinary: Negative for dysuria, frequency and urgency. Musculoskeletal: Negative for arthralgias and myalgias. Skin: Negative for rash and wound. Neurological: Negative for dizziness and headaches. Psychiatric/Behaviora l: Negative for self-injury and suicidal ideas. All other systems reviewed and are negative. Physical Exam Vitals [02/08/24 1548] BP Pulse Temp Temp src Resp SpO2 Weight Height 144/107 77 36.2 ?C (97.2 ?F) Temporal Art 18 95 % 93 kg (205 lb) 1.575 m (5' 2) Physical Exam Vitals and nursing note reviewed. Constitutional: General: She is not in acute distress. Appearance: She is well-developed. HENT: Head: Normocephalic and atraumatic. Nose: Nose normal. Mouth/Throat: Mouth: Mucous membranes are moist. Pharynx: Oropharynx is clear. Eyes: Extraocular Movements: Extraocular movements intact. Pupils: Pupils are equal, round, and reactive to light. Cardiovascular: Rate and Rhythm: Normal rate and regular rhythm. Heart sounds: Normal heart sounds. No murmur heard. No friction rub. No gallop. Pulmonary: Effort: Pulmonary effort is normal. No respiratory distress. Breath sounds: Normal breath sounds. No stridor. No wheezing, rhonchi or rales. Abdominal: General: Bowel sounds are normal. There is no distension. Palpations: Abdomen is soft. Tenderness: There is no abdominal tenderness. Musculoskeletal: General: Normal range of motion. Cervical back: Normal range of motion and neck supple. Right lower leg: No edema. Left lower leg: No edema. Skin: General: Skin is warm and dry. Neurological: General: No focal deficit present. Mental Status: She is alert and oriented to person, place, and time. GCS: GCS eye subscore is 4. GCS verbal subscore is 5. GCS motor subscore is 6. Psychiatric: Mood and Affect: Mood normal. Behavior: Behavior normal. Diagnostic Testing ED Labs Ordered and Reviewed - No data to display Procedures ED Course / Clinical Impression Clinical Impressions as of 02/08/24 1715 Normal exam MDM / Disposition / Plan The patient was seen and examined. History and physical were obtained. Based on history and physical, above diagnostic studies were obtained. Patient presents with concern for foreign body. Considering it is a straight pin it is metal and should be seen on x-ray. X-rays of the chest abdomen and pelvis were performed. X-rays shows no metallic or radio opaque foreign bodies. Patient made aware of results. At this point in time I believe she is able to go home. She can follow-up with her primary care physician and return to ED for any new or worsening concerns. Disposition The patient was discharged. Counseled patient regarding suspected diagnosis and radiology results. SIGNATURE: Haley Rosenbaum MD - NOEMI HALEY M 02/08/24 1717 Normal [facility] XR ABD 2V SUPINE W UPR/DECUB /CTLon 2024 XR ABD 2V SUPINE W UPR/DECUB/CTL * * *Final Report* * * DATE OF EXAM: 2024 4:31PM LDX [id number] - XR ABD 2V SUPINE W UPR/DECUB/CTL / PROCEDURE REASON: Ingested foreign body * * * * Physician Interpretation * * * * EXAM: XR ABD 2V SUPINE W UPR/DECUB/CTL HISTORY: Ingested foreign body COMPARISON: None available FINDINGS: Cholecystectomy clips project over the right upper quadrant. No dilated loop of bowel. No definite radiopaque foreign body. IMPRESSION: No definite radiopaque foreign body identified. Farm Implement Mechanic: Intacct Transcribe Date/Time: 2024 4:51P Dictated by : JR HERNANDEZ MD This examination was interpreted and the report reviewed and electronically signed by: JR HERNANDEZ MD on 2024 4:52PM EST [id number] Normal [facility] XR CHEST 2V FRONTAL/LATon XR CHEST 2V FRONTAL/LAT * * *Final Repor t* * * DATE OF EXAM: 2024 4:32PM LDX 5291 - XR CHEST 2V FRONTAL/LAT / PROCEDURE REASON: Foreign Body * * * * Physician Interpretation * * * * EXAMINATION: CHEST RADIOGRAPH (2 VIEW FRONTAL and LATERAL) CLINICAL HISTORY: Foreign Body MQ: XC2_6 EXAM DATE/TIME: 2024 4:32 PM COMPARISON: May 29, 2009. RESULT: Lines, tubes, and devices: None. Lungs and pleura: No consolidation. No pleural effusion. No pneumothorax. Cardiomediastinal silhouette: Normal cardiomediastinal silhouette. Bones and soft tissues: Unremarkable. IMPRESSION: No acute radiographic abnormality. Farm Implement Mechanic: Intacct Transcribe Date/Time: 2024 4:49P Dictated by : JR HERNANDEZ MD This examination was interpreted and the report reviewed and electronically signed by: JR HERNANDEZ MD on 2024 4:50PM EST [id number] Normal [facility] Knee 1 or 2 Viewson 10-31-19 Knee 1 or 2 Views [facility] [address] [place] [address] Knee 1 or 2 Views MR#: [id number] Acct: [id number] Name: MARY JANE ADAIR Rep #: [id number] : 1955 F 68 From: Kirby Cyr MD PCP: TORRI Howard Status: DEP AMB Study: Knee 1 or 2 Views Date of Exam: 10/31/23 Exam# [id number] Ordering Dr: Robbie Herr DO [id number] STUDY: X-RAY - LEFT KNEE REASON FOR EXAM: Female, 68 years old. Pain -- sunrise and notch only. TECHNIQUE: 2 views of the left knee. COMPARISON: None. FINDINGS: Normal visualized distal femur. Normal visualized proximal tibia and fibula. Normal proximal tibiofibular articulation. There is no demonstrated fracture. There is severe degenerative arthrosis of the medial femorotibial compartment with severe joint space narrowing. There is mild degenerative arthrosis of the lateral femorotibial compartment. There is mild degenerative arthrosis of the patellofemoral articulation. The soft tissue structures are unremarkable. RAD/Knee 1 or 2 Views IMPRESSION: Tricompartment degenerative arthrosis, most severe in the medial femorotibial compartment. No demonstrated fracture. Electronically Signed: Kirby Cyr MD at 10:30 EDT , CC: TORRI Johnson; Dr. Robbie Herr DO Farm Implement Mechanic: Signed Normal [facility] Knee 4 or More Viewson 10-30 Knee 4 or More Views [facility] [address] [place] [address] Knee 4 or More Views MR#: [id number] Acct: [id number] Name: MARY JANE ADAIR Rep #: [id number] : 1955 F 68 From: Kirby Cyr MD PCP: TORRI Howard Status: DEP AMB Study: Knee 4 or More Views Date of Exam: 10/31/23 Exam# [id number] Ordering Dr: Robbie Herr DO [id number] STUDY: X-RAY - RIGHT KNEE REASON FOR EXAM: Female, 68 years old. Pain. TECHNIQUE: 4 views of the right knee. COMPARISON: None. FINDINGS: Normal visualized distal femur. Normal visualized proximal tibia and fibula. Normal proximal tibiofibular articulation. There is no demonstrated fracture. There is mild degenerative arthrosis of the medial femorotibial compartment. There is mild degenerative arthrosis of the lateral femorotibial compartment. There is mild degenerative arthrosis of the patellofemoral articulation. There is a 1.6 cm calcified structure overlying the suprapatellar bursa, probably representing a calcified loose body. The soft tissue structures are unremarkable. RAD/Knee 4 or More Views IMPRESSION: Mild tricompartment degenerative arthrosis. Suspected 1.6 mL calcified loose body in the suprapatellar bursa. No demonstrated fracture. Electronically Signed: Kirby Cyr MD at 10:29 EDT , CC: TORRI Johnson; Dr. Robbie Herr DO Farm Implement Mechanic: Signed Normal [facility] Orthopedic Visit Reporton Orthopedic Visit Report [facility] [address] [place] [address] OFFICE VISIT Date of Service: 10/31/23 MR#: [id number] Acct: [id number] Name: MARY JANE ADAIR Rep #: [id number] : 1955 Provider: Dr. Robbie morel, DO Age/Sex: 68/F [place] [facility] [place] Status: Signed Intake Vital Signs 10/02/23 12:00 10/31/23 09:59 Height 5 ft 1 in 5 ft 1 in Weight: 215 lb 2 oz BMI 40.6 Intake Visit Reasons: BI LAT KNEES Accompanied by: Self Is patient in pain?: Yes Pain scale (1-10): 5 Allergies sulfamethoxazole Allergy (Severe, Verified 10/31/23 10:01) Anaphylaxis amoxicillin Allergy (Intermediate, Unverified 10/31/23 10:01) hives and swelling Medications ???Medication ???Instructions ???Recorded ???Confirmed ???Type fluticasone propionate 50 2 spray intranasal DAILY #16 grams 12/21/21 10/31/23 Rx mcg/actuation nasal spray,suspension (Flonase Allergy Relief) biotin 1 mg capsule 1 mg PO DAILY 10/31/23 10/31/23 History etodolac 500 mg tablet 500 mg PO BID #40 tabs 10/31/23 10/31/23 Rx PFSH Medical History (Updated 10/02/23 @ 12:07 by Bolivar Johnson NP, EXPORT FREIGHT CLERK-C) Carpal tunnel syndrome revision of right thumb from a bite Ganglion cyst of wrist Carpal tunnel syndrome, bilateral Rosacea Hemorrhoids Chronic ear infection Surgical History H/O carpal tunnel repair History of cholecystectomy FH: ADRIANA-BSO (total abdominal hysterectomy and bilateral salpingo-oophorectomy ) Family History Other Diabetes Heart disease High cholesterol Thyroid disorder Social History Smoking Status: Never smoker HPI BI LAT KNEES Details: This documentation accurately reflects the service provided and the decisions made by me, Dr. Robbie Herr, DO 10/31/23 0757. Part of today???s visit was documented by Erica Lezama, acting as scribe. MARY JANE ADAIR is a 68 year old F here today for her bilateral knees. Patient notes that she has had knee pain for about 6 months with her pain worsening the last month. She states that she has had multiple falls recently, landing directly on her knee. Patient denies any prior knee surgery. Patient complains of pain over her left knee only posterior . She denies any right knee pain currently although she has creeking since her most recent fall. She has a sharp pain into her left knee and she needs to twist her knee, and then she can ambulate normal. She denies any instability although her knee twists and she doesnt stop to untwist, and then she falls. Her activities arent stopped due to her knee pain. Patient denies any injections, physical therapy. She has a knee sleeve which isnt comfortable or fit her well. She has increased pain with ambulating stairs. Patient denies any pain medications. She takes ibuprofen 1 tablet once a month. Her most recent fall on her right knee was a few weeks ago. She had a left knee fall about 2 months ago. no h/o stroke, cancer. She states that in 2004, she had a lump and she had a cortisone injection. It did not help with the bump. Ortho Exam General General: Yes no acute distress Neurologic: Yes alert and Yes oriented x3 Psychologic: Yes reasonable and appropriate Right Knee Skin/Wound: Yes CDI, No erythema, No ecchymosis and No swelling Knee ROM: Yes ROM-Extension -20 to 0 and Yes ROM-Flexion 0-140 (125) Examination: No Med jt line tenderness, No Lat jt line tenderness, No TTP inf pole patella and Yes Crepitus Stability: NML: Anterior Drawer, NML: Posterior Drawer, NML: Valgus 0, NML: Valgus 30, NML: Varus 0 and NML: Varus 30 Patella Translation: 1 Patella Grind: No KNEE: crepitus with knee range of motion. 2cm abrasion with scabbing-no signs of infection Left Knee Skin/Wound: Yes CDI, No ecchymosis, No erythema and No swelling Knee ROM: Yes ROM-Extension -20 to 0 and No ROM-Flexion 0-140 Examination: No med jt line tenderness, No Lat jt line tenderness and No Akbar's Test Stability: NML: Valgus 0, NML: Valgus 30, NML: Varus 0 and NML: Varus 30 Patella Translation: 1 KNEE: knee varus deformity- slight. calf larger. no calf pain. good ankle strength. no palpable mass over posterior knee injury when 9 years old- has scar over patella. Office Procedures Ortho Injections Injections Yes Knee Left Is this Buy Bill?: No Details: Obtained consent for injection. Under sterile conditions, injected the patient's left knee with 2cc bupivacaine, 2cc lidocaine and 1cc depomedrol. The patient tolerated the injection well without any noted complication. Patient should call our office if redness develops, pain worsens or if they have any concerns. Office (more content not included)... Normal [facility] Absolute lymphocyte countOrd ered By: Bolivar Johnson on 01-23-2023 Lymphocytes Auto (Unsp spec) [#/Vol] 2.71 10*3/uL 0.83-4.51 [facility] Basophil percentageOrdered B y: Bolivar Johnson on 01-23-2023 Basophils/100 WBC (Bld) 0.7 % 0-1 [facility] Bilirubin [Mass/Vol] 1.30 mg/dL 0.20-1.00 [facility] Comment on above: For patients on eltr ombopag therapy, use of Dimension [place] TBIL is not recommended. Chloride [Moles/Vol] 105 mmol/L 98-107 [facility] Cholesterol [Mass/Vol] 262 mg/dL <200 [facility] Comment on above: <200 mg/dL Desirable 200-240 mg/dL Borderline >240 mg/dL High Risk Eosinophils/100 WBC (Bld) 3.4 % 0-5 [facility] Glucose [Mass/Vol] 108 mg/dL 74-106 [facility] Comment on above: Fasting Glucose resu lt from 100 to 125 mg/dL suggests IMPAIRED HOMEOSTASIS per A.D.A. criteria. Neutrophils (Bld) [#/Vol] 3.2 10*3/uL 2.0-7.7 [facility] Neutrophils/100 WBC (Bld) 46.6 % 47-70 [facility] Potassium [Moles/Vol] 4.5 mmol/L 3.5-5.1 [facility] Protein [Mass/Vol] 8.5 g/dL 6.4-8.2 [facility] Sodium [Moles/Vol] 139 mmol/L 136-145 [facility] Triglyceride [Mass/Vol] 166 mg/dL <199 [facility] Comment on above: The drugs N-Acetylcy steine and Metamizole may falsely depress this assay.Serum Triglycerides Reference Interval Normal <150 mg/dL Borderline high 150 - 199 mg/dL High 200 - 499 mg/dL Very High > or = 500 mg/dL WBC (Bld) [#/Vol] 6.8 10*3/uL 4.4-11.0 [facility] Blood erythrocytes count (nu mber/volume)Ordered By: Bolivar Johnson on 01-23-2023 RBC (Bld) [#/Vol] 5.19 10*6/uL 4.2-5.4 [facility] Blood hemoglobin measurement (mass/volume)Ordered By: Bolivar Johnson on 01-23-2023 Hemoglobin (Bld) [Mass/Vol] 15.1 g/dL 12.0-15.0 [facility] Blood lymphocytes/100 leukoc ytesOrdered By: Bolivar Johnson on 01-23-2023 Lymphocytes/100 WBC (Bld) 39.9 % 19-41 [facility] Blood monocytes/100 leukocyt esOrdered By: Bolivar Johnson on 01-23-2023 Monocytes/100 WBC (Bld) 9.3 % 0-10 [facility] Blood platelet mean volumeOr dered By: Bolivar Johnson on 01-23-2023 Platelet mean volume (Bld) [Entitic vol] 11.5 fL 6.2-12.0 [facility] Determination of erythrocyte mean corpuscular volume (MCV)Ordered By: Bolivar Johnson on 01-23-2023 MCV (RBC) [Entitic vol] 90.6 fL 81-99 [facility] Hematocrit Auto (Bld) [Volum e fraction]Ordered By: Bolivar Johnson on 01-23-2023 Hematocrit (Bld) [Volume fraction] 47.0 % 37-47 [facility] Laboratory - Chemistry and C hemistry - challengeOrdered By: Bolivar Johnson on 01-23-2023 ALP [Catalytic activity/Vol] 96 U/L 45-117 [facility] ALT [Catalytic activity/Vol] 33 U/L 13-56 [facility] CO2 [Moles/Vol] 29.0 mmol/L 21.0-32.0 [facility] Globulin (S) [Mass/Vol] 4.8 g/dL 2.2-4.2 [facility] Urea nitrogen/Creatinine [Mass ratio] 14.1 mg/mg 10-20 [facility] Laboratory - Hematology and Cell countsOrdered By: Bolivar Johnson on 01-23-2023 Erythrocyte distribution width (RBC) [Entitic vol] 43.4 fL 35.1-43.9 [facility] Erythrocyte distribution width (RBC) [Ratio] 13.2 % 11.6-14.6 [facility] Immature granulocytes/100 WBC (Bld) 0.100 % 0.0-0.9 [facility] Comment on above: IG% - Immature Granu locytes (promyelocytes, myelocytes and metamyelocytes) > 1% indicates that a LEFT SHIFT is Present. MCH (RBC) [Entitic mass] 29.1 pg 27.0-32.0 [facility] Nucleated RBC/100 WBC (Bld) [Ratio] 0 % 0-5 [facility] MCHC Auto (RBC) [Mass/Vol]Or dered By: Bolivar Johnson on 01-23-2023 MCHC (RBC) [Mass/Vol] 32.1 g/dL 32-36 [facility] No Panel InformationOrdered By: Bolivar Johnson on 01-23-2023 Estimated GFR (MDRD) Amer 105 mL/min >60 [facility] Comment on above: GFR Calc Estimated GFR (MDRD) Non-Af Amer 87 mL/min >60 [facility] Comment on above: Non- GFR Calc Thyroid Stimulating Hormone (TSH) 2.80 uIU/mL 0.358-3.74 [facility] Platelets bldOrdered By: Tino Johnson on 01-23-2023 Platelets (Bld) [#/Vol] 242 10*3/uL 150-450 [facility] Serum or plasma albumin chris urement (mass/volume)Ordered By: Bolivar Johnson on 01-23-2023 Albumin [Mass/Vol] 3.7 g/dL 3.2-5.0 [facility] Serum or plasma albumin/glob ulin mass ratioOrdered By: Bolivar Johnson on 01-23-2023 Albumin/Globulin [Mass ratio] 0.8 {ratio} 0.9-2.4 [facility] Serum or plasma calcium chris urement (mass/volume)Ordered By: Bolivar Johnson on 01-23-2023 Calcium [Mass/Vol] 9.7 mg/dL 8.5-10.1 [facility] Serum or plasma cholesterol in HDL measurement (mass/volume)Ordered By: Bolivar Johnson on 01-23-2023 Cholesterol in HDL [Mass/Vol] 55 mg/dL >40 [facility] Comment on above: The drugs N-Acetylcy steine and Metamizole may falsely depress this assay. Reference Range HDL <40 mg/dL Low HDL Cholesterol HDL >or= 60 mg/dL High HDL Cholesterol Serum or plasma cholesterol in VLDL measurement (mass/volume)Ordered By: Bolivar Johnson on 01-23-2023 Cholesterol in VLDL [Mass/Vol] 33 mg/dL 5-40 [facility] Serum or plasma creatinine m easurement (mass/volume)Ordered By: Bolivar Johnson on 01-23-2023 Creatinine [Mass/Vol] 0.71 mg/dL 0.55-1.02 [facility] Comment on above: The validity of the calculated GFR & GFRAA in patients over 70 years has not been determined. Clinical correlation is essential. Serum or plasma low density lipoprotein (LDL) cholesterol measurement (mass/volume)Ordered By: Bolivar Johnson on 01-23-2023 Cholesterol in LDL [Mass/Vol] 174 mg/dL 0-130 [facility] Serum or plasma urea nitroge n measurement (mass/volume)Ordered By: Bolivar Johnson on 01-23-2023 Urea nitrogen [Mass/Vol] 10 mg/dL 7-18 [facility] Thin prep Papanicolaou smear with manual screeningOrdered By: Bolivar Johnson on 01-23-2023 Thin prep Papanicolaou smear with manual screening 38 U/L 15-37 [facility] Thin prep Papanicolaou smear with manual screening 5 5-15 [facility] CNCOon 01-20-2021 CNCO HNO ID: [id number] Author: Mammography Coordinator Service: ? Author Type: Physician Type: Letter Filed: 01/24/2021 11:31 PM Note Text: [address] [address] January 20, 2021 PID: [id number] Mary Jane Adair [address] [place] [address] Dear Ms. Adair, We are pleased to inform you that the results of your recent breast imaging exam on 01/19/2021 are normal. Early detection of cancer is very important. We also understand recommendations regarding breast cancer screening are controversial. Please discuss with your primary care provider which strategy is best for you and whether a mammogram is right for you. Your imaging studies and report will be kept on file at [facility] as part of your permanent medical record and are available for your continuing care. Thank you for allowing us to help in meeting your health care needs. Sincerely, Dr. Wakefield Interpreting Radiologist [facility] (Normal over 40) Normal [facility] ED NOTEon 09-17-2020 ED NOTE HNO ID: [id number] Author: Caro (Rn) TONY Barriga Service: Emergency Medicine Author Type: Registered Nurse Type: ED Notes Filed: 09/17/2020 11:41 AM Note Text: ENT Dr. Roe called for Dr. Gaspar. Normal [facility] ED PROV NOTEon 09-17-2020 ED PROV NOTE HNO ID: [id number] Author: Sara Arcos DO Service: Emergency Medicine Author Type: Physician Type: ED Provider Notes Filed: 09/17/2020 12:16 PM Note Text: ED Provider Note Patient Name: Mary Jane Adair SERVICE DATE: 09/17/20 History Patient presents with: Sore Throat Mary Jane Adair is a 65 year old female with who presents with sensation of something in her throat. - Symptoms began this morning - around 330 am. - Severity: moderate - Timing: constant - Quality: denies pain - Sensation something is in her throat is exacerbated by swallowing. - Sensation something is in her throat is not exacerbated by rest. - Symptoms are associated with nothing. - Symptoms are not associated with abdominal pain, chest pain, chills, fever, nausea, shortness of breath, URI symptoms, vomiting, difficulty swallowing, neck pain, trauma. - Improved by nothing. - Not improved by anything. Patient presents stating she feels either something on the right side of her throat when she swallows. She states this started at 330 this morning. She states she is able to swallow. She denies any sore throat or neck pain. She denies any trauma. She does note that she was eating food with a plastic fork on Sunday evening (1 week ago) and one of the prongs on the fork was missing while she was eating. She states she is not sure if she swallowed the prong or not. She states she had no symptoms at the time. She states her symptoms did not start until this morning at 3:30 AM and had no symptoms prior to going to bed last night. She denies any fevers, chills, shortness of breath, chest pain, nausea, vomiting, abdominal pain. PAST MEDICAL HISTORY Diagnosis Date - Hemorrhoids - Irregular intermenstrual bleeding PAST SURGICAL HISTORY Procedure Laterality Date - ELBOW - HYSTERECTOMY HX - PAST SURGICAL HISTORY OF endometerial ablation - PAST SURGICAL HISTORY OF dANDc - PAST SURGICAL HISTORY OF hysteroscopy - REMOVAL GALLBLADDER - THUMB R - TONSILLECTOMY HX FAMILY HISTORY Problem Relation Age of Onset - None Mother - Emphysema Father - Heart Paternal Uncle Social History Tobacco Use - Smoking status: Former Smoker Start date: 07/07/1982 - Smokeless tobacco: Never Used Substance and Sexual Activity - Alcohol use: No - Drug use: Not on file - Sexual activity: Not on file ALLERGIES Allergen Reactions - Amoxicillin Shortness of Breath Review of Systems Constitutional: Negative for chills and fever. HENT: Negative for drooling, ear pain, facial swelling, rhinorrhea, sore throat, trouble swallowing and voice change. + Foreign body sensation to the right side of her throat when she swallows since 3:30 AM. Respiratory: Negative for cough, shortness of breath and stridor. Cardiovascular: Negative for chest pain. Gastrointestinal: Negative for abdominal pain, nausea and vomiting. Musculoskeletal: Negative for back pain, neck pain and neck stiffness. Skin: Negative for rash. Neurological: Negative for weakness, numbness and headaches. Psychiatric/Behaviora l: Negative for agitation and confusion. Physical Exam BP 143/86 Pulse 80 Temp 97.1 Resp 18 Ht 5' 2 (1.58m) Wt 230 lb (104.3kg) SpO2 97% BMI 42.06 kg/(m2). O2 Therapy: Room Air Physical Exam Vitals and nursing note reviewed. Constitutional: General: She is not in acute distress. Appearance: She is not ill-appearing, toxic-appearing or diaphoretic. HENT: Head: Normocephalic and atraumatic. No right periorbital erythema or left periorbital erythema. Jaw: No trismus. Right Ear: Tympanic membrane, ear canal and external ear normal. Left Ear: Tympanic membrane, ear canal and external ear normal. Mouth/Throat: Mouth: Mucous membranes are moist. No oral lesions or angioedema. Pharynx: Oropharynx is clear. Uvula midline. No pharyngeal swelling, oropharyngeal exudate, posterior oropharyngeal erythema or uvula swelling. Tonsils: No tonsillar exudate or tonsillar abscesses. Comments: No visible foreign body in the posterior pharynx. Uvula midline, no elevation of the tongue, soft submandibular compartment. No evidence of Julio's angina. Eyes: General: No scleral icterus. Conjunctiva/sclera: Conjunctivae normal. Pupils: Pupils are equal, round, and reactive to light. Neck: Vascular: No JVD. Trachea: Trachea and phonation normal. No tracheal tenderness. Cardiovascular: Rate and Rhythm: Normal rate and regular rhythm. Pulses: Normal pulses. Pulmonary: Effort: Pulmonary effort is normal. Breath sounds: Normal breath sounds. Abdominal: General: Abdomen is flat. Bowel sounds are normal. There is no distension. Palpations: Abdomen is soft. Tenderness: There is no abdominal tenderness. There is no guarding or rebound. Musculoskeletal: Cervical back: Full passive range of motion without pain, normal range of motion and neck supple. No edema, erythema, (more content not included)... Normal [facility] Vital Signs Date Time Vital Sign Value Performing Clinician Philly claudio 08-27-2024 15:19-0400 Body height 154.94 cm Bolivar Johnson NP-C Work Phone: [facility] 08-27-2024 15:19-0400 Body mass index (BMI) [Ratio] 41.5 kg/m2 Bolivar Johnson EXPORT FREIGHT CLERK-C Work Phone: [facility] 08-27-2024 15:19-0400 Body temperature 98.1 [degF] Bolivar Johnson EXPORT FREIGHT CLERK-C Work Phone: [facility] 08-27-2024 15:19-0400 Body weight 99.79 kg Bolivaryoselyn Johnson EXPORT FREIGHT CLERK-C Work Phone: [facility] 08-27-2024 15:19-0400 Diastolic blood pressure 80 mm[Hg] Bolivar Johnson EXPORT FREIGHT CLERK-C Work Phone: [facility] 08-27-2024 15:19-0400 Heart rate 85 /min Bolivaryoselyn Johnson EXPORT FREIGHT CLERK-C Work Phone: [facility] 08-27-2024 15:19-0400 Respiratory rate 18 /min Bolivaryoselyn Johnson EXPORT FREIGHT CLERK-C Work Phone: [facility] 08-27-2024 15:19-0400 SaO2% (BldA) [Mass fraction] 95 % Bolivaryoselyn Jonhson EXPORT FREIGHT CLERK-C Work Phone: [facility] 08-27-2024 15:19-0400 Systolic blood pressure 128 mm[Hg] Bolivar Johnson EXPORT FREIGHT CLERK-C Work Phone: [facility] 08-18-2024 19:28-0400 Body mass index (BMI) [Ratio] 41.5 kg/m2 Bolivaryoselyn Johnson EXPORT FREIGHT CLERK-C Work Phone: [facility] 08-18-2024 19:28-0400 Body temperature 98.1 [degF] Bolivar Johnson EXPORT FREIGHT CLERK-C Work Phone: [facility] 08-18-2024 19:28-0400 Body weight 99.79 kg Bolivar Johnson EXPORT FREIGHT CLERK-C Work Phone: [facility] 08-18-2024 19:28-0400 Diastolic blood pressure 80 mm[Hg] Bolivaryoselyn MarleyJohnson EXPORT FREIGHT CLERK-C Work Phone: [facility] 08-18-2024 19:28-0400 Heart rate 86 /min Bolivaryoselyn Johnson EXPORT FREIGHT CLERK-C Work Phone: [facility] 08-18-2024 19:28-0400 Respiratory rate 18 /min Bolivaryoselyn MarleyJohnson EXPORT FREIGHT CLERK-C Work Phone: [facility] 08-18-2024 19:28-0400 SaO2% (BldA) [Mass fraction] 95 % Bolivaryoselyn Johnson EXPORT FREIGHT CLERK-C Work Phone: [facility] 08-18-2024 19:28-0400 Systolic blood pressure 130 mm[Hg] Bolivaryoselyn Johnson EXPORT FREIGHT CLERK-C Work Phone: [facility] 10-02-2023 12:00-0400 Body height 154.94 cm [facility] 10-02-2023 12:00-0400 Body mass index (BMI) [Ratio] 41 kg/m2 [facility] 10-02-2023 12:00-0400 Body temperature 97.9 [degF] [facility] 10-02-2023 12:00-0400 Body weight 98.42 kg [facility] 10-02-2023 12:00-0400 Diastolic blood pressure 80 mm[Hg] [facility] 10-02-2023 12:00-0400 Heart rate 83 /min [facility] 10-02-2023 12:00-0400 Respiratory rate 18 /min [facility] 10-02-2023 12:00-0400 SaO2% (BldA) [Mass fraction] 97 % [facility] 10-02-2023 12:00-0400 Systolic blood pressure 115 mm[Hg] [facility] 01-23-2023 15:25-0400 Body height 154.94 cm [facility] 01-23-2023 15:25-0400 Body mass index (BMI) [Ratio] 40.6 kg/m2 [facility] 01-23-2023 15:25-0400 Body temperature 98.1 [degF] [facility] 01-23-2023 15:25-0400 Body weight 97.52 kg [facility] 01-23-2023 15:25-0400 Diastolic blood pressure 80 mm[Hg] [facility] 01-23-2023 15:25-0400 Heart rate 85 /min [facility] 01-23-2023 15:25-0400 Respiratory rate 18 /min [facility] 01-23-2023 15:25-0400 SaO2% (BldA) [Mass fraction] 96 % [facility] 01-23-2023 15:25-0400 Systolic blood pressure 122 mm[Hg] [facility] 12-25-2022 18:16-0400 Body mass index (BMI) [Ratio] 41 kg/m2 [facility] 12-25-2022 18:16-0400 Body temperature 98.1 [degF] [facility] 12-25-2022 18:16-0400 Body weight 98.42 kg [facility] 12-25-2022 18:16-0400 Diastolic blood pressure 80 mm[Hg] [facility] 12-25-2022 18:16-0400 Heart rate 89 /min [facility] 12-25-2022 18:16-0400 Respiratory rate 18 /min [facility] 12-25-2022 18:16-0400 SaO2% (BldA) [Mass fraction] 96 % [facility] 12-25-2022 18:16-0400 Systolic blood pressure 128 mm[Hg] [facility] Encounters Encounter Date Encounter Type Care Provider Facility Start: 10-22-2024 ambulatory BOLIVAR [facility] Start: 10-22-2024 End: 10-22-2024 Subsequent hospital visit by physician Mammo/Bone Density [facility] RADIO MAMMO BONE D [facility] Comment on above: Other abnormal and i nconclusive findings on diagnostic imaging of breast [R92.8] Start: 10-01-2024 End: 10-01-2024 ambulatory Bolivar Johnson EXPORT FREIGHT CLERK-C Work Phone: [facility] Work Phone: Start: 10-01-2024 End: 10-01-[address] Malik Emery MD -MRI - [facility] Work Phone: Start: 10-01-2024 End: 10-01-2024 ambulatory Malik Emery Facility:[facility] Start: 09-11-2024 ambulatory BOLIVAR JOHNSON [facility] Start: 09-11-2024 End: 09-11-2024 Subsequent hospital visit by physician Mammo/Bone Density [facility] RADIO MAMMO BONE D [facility] Comment on above: Encounter for screen ing mammogram for malignant neoplasm of breast [Z12.31] Start: 09-04-2024 Encounter for genera l adult medical examination without abnormal findings Bolivar Johnson EXPORT FREIGHT CLERK [facility] Start: 08-27-2024 End: 08-27-2024 ambulatory Bolivar Johnson EXPORT FREIGHT CLERK-C Work Phone: [facility] Work Phone: Start: 08-27-2024 End: 08-27-2024 Patient encounter procedure Bolivar Johnson EXPORT FREIGHT CLERK-C -Laboratory, Specimen Work Phone: Start: 08-27-2024 End: 08-27-2024 ambulatory Bolivar Johnson EXPORT FREIGHT CLERK Facility:[facility] Start: 2024 Emergency department patient visit BOLIVAR JOHNSON [facility] Start: 10-31-2023 End: 10-31-2023 ambulatory Bolivar Johnson EXPORT FREIGHT CLERK [place] Start: 10-02-2023 End: 10-02-2023 ambulatory [facility] Work Phone: Start: 10-02-2023 End: 10-02-2023 Patient encounter procedure [facility]-Radiology, [facility] Work Phone: Start: 01-23-2023 End: 01-23-2023 ambulatory [facility] Work Phone: Start: 01-23-2023 End: 01-23-2023 Patient encounter procedure [facility]-Laboratory, Specimen Work Phone: Start: 01-23-2023 Patient encounter status [facility] Procedures Date Procedure Procedure Detail Performing Clinician Start: 10-22-2024 Digital breast tomosynthesis unilateral Bolivar Johnson SDE.REVIEW MANAGER Work Phone: Start: 10-01-2024 MRI of brain with contrast Bolivar Johnson EXPORT FREIGHT CLERK-C Work Phone: Start: 10-02-2023 Radiologic examinati on of knee Start: 03-29-2015 Colonoscopy Mammo/Bone Hosp Plan of Treatment Date Care Activity Detail Author Start: 2029 RSV Vaccine (1 - 1-d ose 75+ series) RSV Vaccine (1 - 1-dose 75+ series) [facility] Start: 09-11-2025 Screening for malign ant neoplasm of breast Mammogram Screening [facility] Start: 02-09-2025 Influenza vaccination Influenz a Vaccine (Season Ended) [facility] Start: 06-11-2024 Advance Directive Discussion Advance Directive Discussion [facility] Start: 02-10-2024 Covid-19 Vaccine ( season) Covid-19 Vaccine ( season) [facility] Start: 02-10-2024 Influenza vaccination Influenza Vacc ine (#1) [facility] Start: 01-19-2022 Screening for malign ant neoplasm of breast Mammogram Screening [facility] Start: 2019 Screening for osteoporosis Bone Density Screening [facility] Start: 03-29-2018 Screening for malign ant neoplasm of colon [facility] Start: 02-09-2004 Pneumococcal Vaccine : 50+ (1 of 1 - PCV) Pneumococcal Vaccine: 50+ (1 of 1 - PCV) [facility] Start: 02-09-2004 Shingrix Vaccine (1 of 2) Shingrix V accine (1 of 2) [facility] Start: 1999 Diabetes Screening Diabetes Screenin g [facility] Start: 1999 Lipid panel Lipid Screening [facility] Start: 1999 Screening for malign ant neoplasm of colon [facility] Start: 1973 Urine microalbumin profile DTaP,Tdap,Td Vaccine (1 - Tdap) [facility] Start: 02-09-1972 Anxiety Screening Anxiety Screening [facility] Start: 02-09-1972 Depression Screening Depression Scre ening [facility] Start: 02-09-1972 Hepatitis C screening Hepatitis C [facility] Immunizations Immunization Date Immunization Notes Care Provider Adama upton 06-15-2009 influenza virus vacc ine, unspecified formulation Mammo/Bone Hosp [facility] Payers Date Payer Category Payer Self-pay [id number] 2021 Medicare (Managed Care) [employer] D[employer]ARE [id number] 2021 Private Health Insurance 101 [id number] Medicare MEDICARE PART A B [id number] Private Health Insurance AELAKEISHA LEONARD [id number] Unknown [id number] Unknown [id number] Unknown [id number] Unknown [id number] Social History Date Type Detail Facility Start: 09-17-2020 [facility] Start: 1955 Sex Assigned At Female [facility] Start: 09-17-2020 Tobacco smoking stat [facility] Never smoked tobacco (finding) [facility] Start: 09-04-2024 End: 10-06-2024 Sex Female (finding) [facility] Start: 2024 [facility] Start: 07-07-1982 History of tobacco use Current smoke r [facility] Start: 07-07-1982 History of tobacco use Cigarette Smo ker [facility] Start: 2024 Tobacco use and exposure Smokeless tobacco non-user [facility] Start: 2024 Alcoholic beverage intake Current non-drinker of alcohol (finding) [facility] Start: 2024 End: 02-09-2024 History of Social function [facility] Start: 2024 End: 02-09-2024 Tobacco use panel [facility] National Score (1-10 0), lower number is lower risk 53 [facility] Start: 1955 Sex assigned at Not on file [facility] Functional Status Date Assessment Result Facility 07-27-2014 Are you deaf, or do you have serious difficulty hearing No 07/27/2014 10:43 AM Mellissa Grace Ma No [facility] 07-27-2014 Are you blind, or do you have serious difficulty seeing, even when wearing glasses No 07/27/2014 10:43 AM Mellissa Grace Ma No [facility] 07-27-2014 Do you have serious difficulty walking or climbing stairs Yes 07/27/2014 10:43 AM Mellissa Grace Ma Yes [facility] 07-27-2014 Do you have difficul ty dressing or bathing No 07/27/2014 10:43 AM Mellissa Grace Ma No [facility] 07-27-2014 Because of a physica l, mental, or emotional condition, do you have difficulty doing errands alone such as visiting a physician's office or shopping Yes 07/27/2014 10:43 AM Mellissa Grace Ma Yes [facility] Mental Status Date Assessment Result Facility 07-27-2014 Because of a physica l, mental, or emotional condition, do you have serious difficulty concentrating, remembering, or making decisions No 07/27/2014 10:43 AM Mellissa Grace Ma No [facility] History of Present illness Narrative 10-22-2024 Reginald Bean RT(R) - 10/22/2024 2:30 PM EDT Note Date & Type Note Facility 10-22-2024 History of Presen t illness Narrative Radiology Service Progress Note PATIENT NAME: Mary Jane Adair DATE OF SERVICE: October 22, 2024 TIME: 2:27 PM PATIENT IDENTITY VERIFICATION COMPLETED USING TWO (2) IDENTIFIERS: Name and Date of confirmed by patient verbally. FALL SCREENING: Has the patient had 2 falls in the last year or 1 fall with injury or currently using an Ambulatory Assistive Device (Walker, Cane, Wheelchair, Crutches, etc.)? No PATIENT GENDER DATA: Assigned female at . status: : No status: N/A PATIENT RELEVANT IMPLANT DATA REVIEWED: Not Applicable PATIENT PRESENTS WITH AN IMPLANTABLE OR ATTACHED PLATING OPERATOR: No RADIOLOGY DEPARTMENT: Mammography PERIPHERAL IV DATA: Not applicable SIGNED BY: ELOISA Fan) October 22, 2024 2:27 PM documented in this encounter [facility] Progress note 10-22-2024 Note Date & Type Note Facility 10-22-2024 Note HNO ID: [id number] Author: REGINALD BEAN RT(R) Service: Radiology Author Type: Technologist Type: Progress Notes Filed: 10/22/2024 14:27 Note Text: Radiology Service Progress Note PATIENT NAME: Mary Jane Adair DATE OF SERVICE: October 22, 2024 TIME: 2:27 PM PATIENT IDENTITY VERIFICATION COMPLETED USING TWO (2) IDENTIFIERS: Name and Date of confirmed by patient verbally. FALL SCREENING: Has the patient had 2 falls in the last year or 1 fall with injury or currently using an Ambulatory Assistive Device (Walker, Cane, Wheelchair, Crutches, etc.)? No PATIENT GENDER DATA: Assigned female at . status: : No status: N/A PATIENT RELEVANT IMPLANT DATA REVIEWED: Not Applicable PATIENT PRESENTS WITH AN IMPLANTABLE OR ATTACHED PLATING OPERATOR: No RADIOLOGY DEPARTMENT: Mammography PERIPHERAL IV DATA: Not applicable SIGNED BY: RT Meng(R) October 22, 2024 2:27 PM [facility] History of Present illness Narrative 09-11-2024 Reginald Bean RT(R) - 09/11/2024 8:30 AM EDT Note Date & Type Note Facility 09-11-2024 History of Presen t illness Narrative Radiology Service Progress Note PATIENT NAME: Mary Jane Adair DATE OF SERVICE: September 11, 2024 TIME: 8:22 AM PATIENT IDENTITY VERIFICATION COMPLETED USING TWO (2) IDENTIFIERS: Name and Date of confirmed by patient verbally. FALL SCREENING: Has the patient had 2 falls in the last year or 1 fall with injury or currently using an Ambulatory Assistive Device (Walker, Cane, Wheelchair, Crutches, etc.)? No PATIENT GENDER DATA: Assigned female at . status: : No status: N/A PATIENT RELEVANT IMPLANT DATA REVIEWED: Not Applicable PATIENT PRESENTS WITH AN IMPLANTABLE OR ATTACHED PLATING OPERATOR: No RADIOLOGY DEPARTMENT: Mammography PERIPHERAL IV DATA: Not applicable SIGNED BY: RT Meng(R) September 11, 2024 8:22 AM documented in this encounter [facility] Progress note 09-11-2024 Note Date & Type Note Facility 09-11-2024 Note HNO ID: [id number] Author: REGINALD BEAN RT(R) Service: Radiology Author Type: Technologist Type: Progress Notes Filed: 09/11/2024 08:22 Note Text: Radiology Service Progress Note PATIENT NAME: Mary Jane Adair DATE OF SERVICE: September 11, 2024 TIME: 8:22 AM PATIENT IDENTITY VERIFICATION COMPLETED USING TWO (2) IDENTIFIERS: Name and Date of confirmed by patient verbally. FALL SCREENING: Has the patient had 2 falls in the last year or 1 fall with injury or currently using an Ambulatory Assistive Device (Walker, Cane, Wheelchair, Crutches, etc.)? No PATIENT GENDER DATA: Assigned female at . status: : No status: N/A PATIENT RELEVANT IMPLANT DATA REVIEWED: Not Applicable PATIENT PRESENTS WITH AN IMPLANTABLE OR ATTACHED PLATING OPERATOR: No RADIOLOGY DEPARTMENT: Mammography PERIPHERAL IV DATA: Not applicable SIGNED BY: RT Meng(R) September 11, 2024 8:22 AM [facility] Evaluation note 08-18-2024 Note Date & Type Note Facility 08-18-2024 Evaluation note Diagnosis Onset Date Resolution Hearing loss in left ear acute August 18, 2024 6:39pm Tinnitus acute August 18 6:39pm Wellness examination acute [place] [facility] 2024 2:48pm [facility] Work Phone: Progress note 01-19-2021 Note Date & Type Note Facility 01-19-2021 Note HNO ID: [id number] Author: ELOISA Fan) Service: ? Author Type: Forging Dies Final Finisher Type: Progress Notes Filed: 01/19/2021 3:54 PM Note Text: Radiology Service Progress Note PATIENT NAME: Mary Jane Adair DATE OF SERVICE: January 19, 2021 TIME: 3:54 PM PATIENT IDENTITY VERIFICATION COMPLETED USING TWO (2) IDENTIFIERS: Name and Date of confirmed by patient verbally. FALL SCREENING: Has the patient had 2 falls in the last year or 1 fall with injury or currently using an Ambulatory Assistive Device (Walker, Cane, Wheelchair, Crutches, etc.)? No PATIENT GENDER DATA: Female. status: : No status: N/A PATIENT RELEVANT IMPLANT DATA REVIEWED: Not Applicable RADIOLOGY DEPARTMENT: Mammography PERIPHERAL IV DATA: Not applicable SIGNED BY: RT Meng(R) January 19, 2021 3:54 PM [facility] Evaluation note Note Date & Type Note Facility Evaluation note Diagnosis Onset Date Diverticulitis acute LLQ abdominal pain acute Wellness examination acute [facility] Work Phone: Evaluation note Note Date & Type Note Facility Evaluation note Diagnosis Onset Date Left knee pain acute Varicosities of leg acute [facility] Work Phone: Reason for referral (narrative) Note Date & Type Note Facility Reason for referral (narrative) No reason for referral information available [facility] Work Phone: Summary Purpose Family History No Family History Records Found Relationship Condition Age at Onset Recorded Date/T silvino Not Specified Diabetes mellitus Unknown High blood cholesterol Unknown Cardiac disease Unknown Disorder of thyroid Unknown Advance Directives No Advanced Directives Records FoundNo Advanced Directives Records FoundNo Advanced Directives Records Found Chief Complaint and Reason for Visit Chief Complaint L)lower quadrant emma n Annual wellness exam labs PE Reason for Visit Diverticulitis LLQ abdominal pain Wellness examination Chief Complaint Hair complaints/Loss E ORDER Reason for Visit Left knee pain Varicosities of leg Chief Complaint Admit Date Ear complaints(L) August 18, 2024 6:3 9pm Annual wellness exam PE August 27, 2024 2:48pm Reason for Visit Admit Date Hearing loss in left ear August 18 6:39pm Tinnitus August 18, 2024 6:3 9pm Wellness examination August 27, 2024 2: 48pm Chief Complaint Admit Date Ear complaints(L) August 18, 2024 6:3 9pm Annual wellness exam PE August 27, 2024 2:48pm Sensorineural hearing loss, bilateral Ap ril 2024 6:34am Additional Source Comments INFORMATION SOURCE (unrecogn ized section and content) DATE CREATED AUTHOR 05/30/2021 [facility] DATE CREATED AUTHOR AUTHOR'S ORGANIZ ATION 10/07/2024 [facility] DATE CREATED AUTHOR AUTHOR'S ORGANIZ ATION 10/23/2024 [facility] Care Teams (unrecognized sec tion and content) Team Status: Inactive Member Role Status Dates Bolivar Johnson NP EXPORT FREIGHT CLERK-C Attending Provider Active Team Status: Active Member Role Status Dates Bolivar Johnson NP EXPORT FREIGHT CLERK-C Primary Care Provider Active Team Status: Inactive Member Role Status Dates TORRI Howard NP Primary Care Pr ovider, Attending Provider, Referring Provider Active Team Status: Inactive Member Role Status Dates Bolivar Johnson NP, NP-C Primary Care Provider Active Start: August 18, 2024 End: August 18, 2024 Bolivar Johnson NP, NP-C Attending Provider Active Start: August 18, 2024 End: August 18, 2024 Bolivar Johnson NP, NP-Suzie Referring Provider Active Start: August 18, 2024 End: August 18, 2024 Team Status: Inactive Member Role Status Dates Bolivar Johnson NP, NP-C Primary Care Provider Active Start: August 27, 2024 End: August 27, 2024 Bolivar Johnson NP, NP-C Attending Provider Active Start: August 27, 2024 End: August 27, 2024 Bolivar Johnson NP EXPORT FREIGHT CLERK-C Referring Provider Active Start: August 27, 2024 End: August 27, 2024 Scheduling Assistant Relationship Specialty Start Date End Date Bolivar Johnson APRN.CNP [address] [facility] [address] [place] [address] PCP - General Family Medicine 09/17/20 Team Status: Inactive Member Role Status Dates Bolivar Johnson NP EXPORT FREIGHT CLERK-C Primary Care Provider Active Start: October 01, 2024 End: October 01, 2024 Dr. Malik Emery MD Attending Provider Active Start: October 01, 2024 End: October 01, 2024 Dr. Malik Emery MD Referring Provider Active Start: October 01, 2024 End: October 01, 2024 Goals (unrecognized section and content) Goals may be documented in a n alternate sectionGoals may be documented in an alternate sectionGoals may be documented in an alternate sectionGoals may be documented in an alternate section Source Comments (unrecognize d section and content) In the event this informatio n is protected by the Federal Confidentiality of Alcohol and Drug Abuse Patient Records regulations: The Federal rules restrict any use of the information to criminally investigate or prosecute any alcohol or drug abuse patient.[facility] the event this information is protected by the Federal Confidentiality of Alcohol and Drug Abuse Patient Records regulations: The Federal rules restrict any use of the information to criminally investigate or prosecute any alcohol or drug abuse patient.[facility] FOR RECORDS PERTAINING TO PATIENTS WHO ARE OR HAVE BEEN ENROLLED IN A CHEMICAL DEPENDENCY/SUBSTANCEABUSE PROGRAM, SOME INFORMATION MAY BE OMITTED. This clinical summary was aggregated from multiple sources. Caution should be exercised in using it in the provision of clinical care. This summary normalizes information from multiple sources, and as a consequence, information in this document may materially change the coding, format and clinical context of patient data. In addition, data may be omitted in some cases. CLINICAL DECISIONS SHOULD BE BASED ON THE PRIMARY CLINICAL RECORDS. [facility] [facility]. provides no warranty or guarantee of the accuracy or completeness of information in this document.
[2024-11-20 22:19] LABS: Cholesterol 150 mg/dL (<=200); High Density Lipoprotein 57 mg/dL; Low Density Lipoprotein Calc. 69 mg/dL; Triglycerides 123 mg/dL; Very Low Density Lipoprotein 25 mg/dL (5-40); cholesterol:hdl ratio screen 2.65
== END | disposition home or self-care (01) ==
PROVIDERS: PCP Nurse Practitioner; Referring Provider Nurse Practitioner; Visit Provider Nurse Practitioner
DX: E78.2 Mixed hyperlipidemia (principal)
CPT/HCPCS: 80061

== ENCOUNTER → 2024-12-22 | Outpatient (CLI) | payer MEDICARE, SELFPAY ==
[2024-12-22 23:09] LABS: Cholesterol 238 mg/dL (<=200); Low Density Lipoprotein Calc. 139 mg/dL; Triglycerides 221 mg/dL; Very Low Density Lipoprotein 44 mg/dL (5-40); cholesterol:hdl ratio screen 4.36
== END | disposition home or self-care (01) ==
PROVIDERS: PCP Nurse Practitioner; Referring Provider Nurse Practitioner; Visit Provider Nurse Practitioner
DX: E78.2 Mixed hyperlipidemia (principal)
CPT/HCPCS: 80061